=== PATIENT | male | born 1945 | race Caucasian/White ===

== ENCOUNTER → 2016-12-24 | Outpatient (CLI) | payer OTHER ==
[~2016-12-24] MED LIST: LORA10TA57 PO; PRAV10TA39 PO
[2016-12-24 16:58] LABS: ALT/SGPT 36 U/L (12-78); BLOOD UREA NITROGEN 14 mg/dl (7-18); BUN/CREATININE RATIO 11.9 (10-20); CALCIUM 8.8 mg/dl (8.5-10.1); CARBON DIOXIDE 27 mmol/L (21-32); CHLORIDE 107 mmol/L (98-107); GLUCOSE 104 mg/dl (70-99); POTASSIUM 4.4 mmol/L (3.5-5.1); SODIUM 142 mmol/L (136-145)
[2016-12-24 17:03] LABS: ALB/GLOB RATIO 1.1 (0.9-2); ALKALINE PHOSPHATASE 80 U/L (45-117); AST/SGOT 18 U/L (15-37); CHOLESTEROL 199 mg/dl (0-200); CHOLESTEROL/HDL RATIO 3.3; HDL CHOLESTEROL 61 mg/dl; LDL CHOLESTEROL CALCULATED 114 mg/dl; TRIGLYCERIDES 121 mg/dl (0-150); VERY LOW DENSITY LIPOPROT CALC 24 mg/dl
[2016-12-24 17:13] LABS: BASO % 0.7 %; BASO ABS # 0.05 K/uL (0-0.2); COMPLETE YES; EOS % 7.8 %; HEMATOCRIT 51.5 % (42-52); IG% 0.4 %; LYMPH ABS # 2.57 K/uL (1.2-3.4); MEAN CELL VOLUME 88.9 fL (80-100); MEAN CORPUSCULAR HEMOGLOBIN 29.4 pg (25-34); MONO % 9.4 %; NEUT % 45.7 %; PLATELET COUNT 299 K/uL (130-400); RED BLOOD COUNT 5.79 M/uL (4.7-6.1); WHITE BLOOD COUNT 7.14 K/uL (4.8-10.8)
[2016-12-25 06:23] LABS: ESTIMATED AVERAGE GLUCOSE 123 mg/dl; HA1C FLAG Normal (Normal)
--- NOTE | 2016-12-28 12:29 | CODING QUERY MEDICAL NECESSITY ---
SUPPORTING DIAGNOSIS NEEDED A supporting diagnosis is required for the test/procedure performed on this patient in order for us to be reimbursed by the patient's insurance. Please provide a supporting diagnosis for the following test/procedure listed below next to the test name along with your signature. *If there is no additional diagnosis for this patient that would support the following test/procedure please document that below next to the test/procedure. Test(s)/Procedure(s) that require a supporting diagnosis: * GLYCATED HEMOGLOBIN DIAGNOSIS: * PSA DIAGNOSIS: * DOS: 12/24/16 Provider Signature: Date: Thank you Kristine Page Health Information Management Once completed, please kindly fax back to [phone] For questions please call [phone]
== END | disposition home or self-care (01) ==
LOC: C.LABBC 13:11
PROVIDERS: ATTEND Internal Medicine
DX: Z00.00 Encounter for general adult medical examination without abnormal findings (principal); R73.01 Impaired fasting glucose; Z12.5 Encounter for screening for malignant neoplasm of prostate

== ENCOUNTER → 2017-12-23 | Outpatient (CLI) | payer OTHER ==
[~2017-12-23] MED LIST changes: +ASPI81TA28 PO; +LORA-749 PO; -LORA10TA57 PO
[2017-12-23 16:43] LABS: BASO % 0.6 %; BASO ABS # 0.06 K/uL (0-0.2); EOS % 11.1 %; HEMATOCRIT 51.4 % (42-52); HEMOGLOBIN 17.2 g/dL (14.0-18.0); IG# 0.05 K/uL (0.00-0.02); LYMPH % 22.6 %; LYMPH ABS # 2.44 K/uL (1.2-3.4); MEAN CELL VOLUME 89.9 fL (80-100); MEAN CORPUSCULAR HEMOGLOBIN 30.1 pg (25-34); MEAN CORPUSCULAR HGB CONC 33.5 g/dl (32-36); MEAN PLATELET VOLUME 10.2 fL (7.4-10.4); MONO ABS # 1.19 K/uL (0.11-0.59); NEUT % 54.2 %; NEUT ABS # 5.87 K/uL (1.4-6.5); PLATELET COUNT 369 K/uL (130-400); RED CELL DISTRIBUTION WIDTH CV 13.5 % (11.5-14.5); RED CELL DISTRIBUTION WIDTH SD 44.4 fL (36.4-46.3); WHITE BLOOD COUNT 10.81 K/uL (4.8-10.8)
[2017-12-23 17:10] LABS: ALBUMIN 3.5 gm/dl (3.4-5.0); ALT/SGPT 35 U/L (12-78); BLOOD UREA NITROGEN 16 mg/dl (7-18); CALCIUM 9.1 mg/dl (8.5-10.1); CARBON DIOXIDE 25 mmol/L (21-32); CHOLESTEROL 176 mg/dl (0-200); CREATININE 1.29 mg/dl (0.60-1.40); GLUCOSE 113 mg/dl (70-99); POTASSIUM 4.4 mmol/L (3.5-5.1); SODIUM 137 mmol/L (136-145)
[2017-12-23 17:15] LABS: ALKALINE PHOSPHATASE 103 U/L (45-117); AST/SGOT 20 U/L (15-37); LDL CHOLESTEROL CALCULATED 108 mg/dl; TOTAL PROTEIN 7.4 gm/dl (6.4-8.2)
[2017-12-24 06:58] LABS: HEMOGLOBIN A1C 6.2 % (4.5-5.6)
== END | disposition home or self-care (01) ==
LOC: C.LABBC 13:20
PROVIDERS: ATTEND Internal Medicine
DX: Z00.00 Encounter for general adult medical examination without abnormal findings (principal); E78.5 Hyperlipidemia, unspecified; K57.90 Diverticulosis of intestine, part unspecified, without perforation or abscess without bleeding; R73.01 Impaired fasting glucose; Z12.5 Encounter for screening for malignant neoplasm of prostate

== ENCOUNTER 2019-08-27 05:49 | Inpatient (IN) ==
--- NOTE | 2019-08-27 06:32 | XRay Report ---
XR ribs RT min 3V w CXR1V HISTORY: 74 years-old Male right lower rib pain. known lymphoma. coughing. Acute right-sided rib pa in with cough COMPARISON: Chest radiograph 05/23/2019, PET CT 07/02/2019 TECHNIQUE: PA view of the chest with 4 views of the right ribs FINDINGS: Bilateral hilar prominence has mildly progressed from comparison, notably on the right. Cardiac silho uette is normal in size. There is no pneumothorax, pleural effusion or overt pulmonary edema. Mild ch ronic interstitial coarsening of the lateral right midlung and lung bases. Degenerative changes of th e shoulders and spine. Healed remote rib fractures of the posterior right eighth, ninth and 10th ribs . No acute displaced fracture identified. IMPRESSION: 1. Bilateral hilar prominence likely related to underlying adenopathy. 2. No acute displaced rib fracture identified. The above report was generated using voice recognition software. It may contain grammatical, syntax o r spelling errors. Electronically signed by: Vince Mcnamara M.D. 08/27/2019 6:31 AM
[2019-08-27 06:43] LABS: Basophils # (auto) 0.05 K/uL (0-0.2); Basophils % (auto) 0.8 %; Eosinophils # (auto) 0.45 K/uL (0-0.5); Immature Granulocytes # (auto) 0.02 K/uL (0.00-0.02); Immature Granulocytes % (auto) 0.3 %; Lymphocytes # (auto) 0.49 K/uL (1.2-3.4); Lymphocytes % (auto) 7.6 %; Mean Corpuscular Hemoglobin 29.2 pg (25-34); Mean Corpuscular Hgb Conc 33.3 g/dL (32-36); Mean Corpuscular Volume 87.5 fL (80-100); Mean Platelet Volume 10.1 fL (7.4-10.4); Monocytes # (auto) 1.39 K/uL (0.11-0.59); Monocytes % (auto) 21.6 %; Neutrophils # (auto) 4.03 K/uL (1.4-6.5); Neutrophils % (auto) 62.7 %; Platelet Count 245 K/uL (130-400); RDW Coefficient of Variation 13.5 % (11.5-14.5); RDW Standard Deviation 43.3 fL (36.4-46.3); White Blood Count 6.43 K/uL (4.8-10.8)
[2019-08-27] MEDS ORDERED: HYDROmorphone INJ 0.5 MG/0.5 ML SYR IV PRN (06:44)
[2019-08-27] MEDS ORDERED: ACETAMINOPHEN 1,000 MG/100 ML VIAL IV STA (06:44)
[2019-08-27] MEDS ORDERED: ONDANSETRON INJ 2 MG/ML 2 ML VIAL IV STA (06:45)
[2019-08-27 07:04] LABS: BUN Creatinine Ratio 12.6 (10-20); Blood Urea Nitrogen 25 mg/dl (7-18); Calcium 12.4 mg/dl (8.5-10.1); Carbon Dioxide 28 mmol/L (21-32); Chloride 104 mmol/L (98-107); Creatinine Clr Calc Pharmacy 29.1 ml/min; Est GFR (African American) 36.1; Est GFR (Non-African American) 31.1; Glucose 102 mg/dl (70-99); Potassium 3.7 mmol/L (3.5-5.1); Sodium 138 mmol/L (136-145); Troponin I < 0.015 ng/ml (0-0.045)
[2019-08-27 07:13] LABS: Creatine Kinase 42 U/L (39-308); Creatine Kinase MB < 1.0 ng/ml (0.5-3.6)
[2019-08-27] MEDS ORDERED: SODIUM CHLORIDE 0.9% 1000ML 1,000 ML IV ONE ×2 (07:15→07:32)
--- NOTE | 2019-08-27 07:43 | CT Scan Report ---
CT chest wo con CT DOSE: 456.17 mGycm CLINICAL HISTORY: 74 years-old Male with Pt c/o Rt sided flank pain. Acute right-sided chest and fla nk pain. History of lymphoma. TECHNIQUE: Multiaxial CT images of the chest were performed without contrast. A dose lowering techni que was utilized adhering to the principles of ALARA. COMPARISON: CT abdomen and pelvis of same day, PET CT 07/02/2019, chest CT 09/13/2014 FINDINGS: Bulky supraclavicular, axillary chain, subpectoral, mediastinal, hilar and upper abdominal adenopathy has progressed from 07/02/2019 compatible with patient's known clinical diagnosis of lymphoma. For exa mple, index conglomerate right axillary adenopathy measures 5.2 x 4.5 cm on image 73 series 4 which p reviously measured up to 4.9 x 2.3 cm within this distribution. Right paratracheal lymph nodes measur e up to 2.6 x 2.1 cm, previously 1.9 x 1.5 cm. Heart is moderately enlarged. No pericardial effusion. Coronary arterial calcifications are noted. No thoracic aortic aneurysm. Unremarkable thyroid. There are a few prominent right-sided subpleural nodules suggestive of additional probable lymph nodes. So ft tissue nodule posterior to the left deltoid mouth reflect enlarged lymph node. Trace right pleural effusion. No pneumothorax. Mild dependent bibasilar groundglass densities suggest bethany of atelectasis. No overt pulmonary edema or airspace consolidation typical for pneumonia. Mild de pendent right basilar consolidation suggests compressive atelectasis. No suspicious pulmonary nodules or masses. Soft tissue adjacent to the splenic hilum may reflect additional adenopathy. Soft tissues are within normal limits. Subcutaneous stranding of the right greater than left axillary distributio ns. Degenerative changes of the shoulders and spine. No acute fracture or suspicious bone lesion iden tified. IMPRESSION: 1. Worsened extensive thoracic and upper mediastinal adenopathy as above compatible with progressive lymphoma. 2. Trace right pleural effusion with subsegmental dependent bibasilar consolidation suggestive of ate lectasis. 3. No acute fracture identified. 4. Cardiomegaly. Electronically signed by: Vince Mcnamara M.D. 08/27/2019 7:42 AM
--- NOTE | 2019-08-27 07:56 | CT Scan Report ---
CT SCAN OF THE ABDOMEN AND PELVIS WITHOUT CONTRAST CLINICAL HISTORY: Right flank pain COMPARISON STUDY: 09/13/2014, PET/CT scan dated 07/02/2019 TECHNIQUE: CT scan of the abdomen and pelvis was performed from the lung bases to the proximal femurs . Images are reviewed in the axial, sagittal, and coronal planes. IV contrast was not administered fo r this examination. A dose lowering technique was utilized adhering to the principles of ALARA. CT DOSE: 681.43 mGycm FINDINGS: Lower chest: There are bibasilar dependent atelectatic changes. There is mild lower lobe surgical bro nchiectasis. There is a 5 mm right lower lobe pulmonary nodule. There is a 5 mm pleural-based right l ower lobe pulmonary nodule. There are enlarged cardiophrenic angle lymph nodes measuring up to 21 mm in diameter. There is a trace right pleural effusion. Liver: The unenhanced liver is normal in size, contour, and attenuation. There is no intrahepatic rossi iary ductal dilatation. Gallbladder: Unremarkable. Spleen: The spleen is enlarged measuring 15.2 cm Pancreas: Unremarkable. Adrenal glands: Unremarkable. Kidneys: There is right-sided hydronephrosis and right-sided hydroureter. There is obstructing 2.8 mm right UVJ calculus. Bowel: There are no transition zones indicate bowel obstruction. There is pancolonic diverticulosis. There are no acute peridiverticular inflammatory changes. The appendix appears normal. Peritoneum: There is no intraperitoneal free air or abdominal ascites. There are bilateral fat-contai ismael inguinal hernias. Vasculature: The abdominal aorta is normal in course and caliber. Adenopathy: There are enlarged cardiophrenic angle lymph nodes. There are enlarged lymph nodes in the gastrohepatic ligament. There are enlarged perisplenic and peripancreatic lymph nodes. There are enl arged retrocrural lymph nodes, an enlarged ceci hepatis lymph nodes. There are enlarging portacaval lymph nodes. There are enlarged bilateral iliac chain lymph nodes and inguinal lymph nodes. An index left aortic lymph node measures 34 mm in diameter. The findings are consistent with the patient's kno wn lymphoma Pelvic viscera: The prostate is enlarged measuring 56 mm. Skeletal structures: There is bilateral L5 spondylolysis IMPRESSION: 1. 2.8 mm right UVJ calculus with secondary obstructive change 2. Moderately extensive progressive abdominal and pelvic lymphadenopathy, consistent with the patient 's known lymphoma 3. Pandiverticulosis. No evidence of acute diverticulitis 4. Normal appendix 5. Prostatomegaly Electronically signed by: Benigno Hamilton M.D. 08/27/2019 7:55 AM
--- NOTE | 2019-08-27 09:28 | History & Physical Report ---
Date of Service August 27, 2019 Assessment & Plan (1) Hypercalcemia: Admit patient to PCU on telemetry for hypercalcemia Vital signs every 4 hours Start IV fluid hydration with normal saline of 100 cc/h Monitor calcium closely Ionized calcium pending Consult nephrology for hypercalcemia DVT prophylaxis heparin 5000 international units every 12 hours Full code Present on Admission?: Yes (2) Nephrolithiasis: Discussed with urology. With conservative we tried to treat 2.8 mm kidney stone. Continue IV fluid hydration Monitor electrolytes and replenish as needed Present on Admission?: Yes (3) Chronic renal insufficiency, stage III (moderate): Avoid nephrotoxic agents. Continue monitoring creatinine and GFR. IV fluid hydration Present on Admission?: Yes (4) Lymphoma: Follow-up with Dr. Mayes. Patient supposed to have a port placed for chemotherapy this week on Tuesday. Present on Admission?: Yes (5) Hyperlipidemia: Lipid panel pending, continue pravastatin 10 mg p.o. nightly. Continue aspirin 81 mg p.o. nightly preventatively for coronary artery disease. 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 Patient said nothing relieves his pain. Pain is colicky comes and goes. Nature it is shooting and radiating to his right groin. Patient did not notice any blood in his urine. Patient knows he has lymphoma and needs treatment for it. Patient denies being febrile. In review of system patient denies fever, chills, chest pain, shortness of breath, abdominal pain except for right costovertebral angle tenderness, urgency, frequency, dysuria, hematuria, syncope or near syncope. Labs reviewed: WBC 6.43, hemoglobin 14, hematocrit 42, sodium 138, potassium 3.7, chloride 104, BUN 25, creatinine 2.02, GFR 31.1, Calcium 12.4. Troponin 0 0.05, urine pending; CT abdomen pelvis:1. 2.8 mm right UVJ calculus with secondary obstructive change 2. Moderately extensive progressive abdominal and pelvic lymphadenopathy, consistent with the patient's known lymphoma 3. Pandiverticulosis. No evidence of acute diverticulitis 4. Normal appendix 5. Prostatomegaly The decision was made to admit patient to PCU on telemetry for hypercalcemia, nephrolithiasis, worsening chronic kidney insufficiency, hydration and further evaluation treatment. Allergies Allergy/AdvReac Type Severity Reaction Status Date / Time No Known Drug Allergies Allergy Verified 08/27/19 07:01 Home Medications Home Medications Medication Instructions Recorded Confirmed Type sodium chloride 0.65 % nasal spray 2 sprays INTNAS QID PRN 05/10/19 08/27/19 History aerosol pravastatin 10 mg tablet 10 mg PO HS #90 tab 07/16/19 08/27/19 History aspirin [Aspir-81] 81 mg PO HS 07/18/19 08/27/19 History Past Med/Surg History Medical History Chronic kidney disease (CKD) stage G3a/A1, moderately decreased glomerular filtration rate (GFR) between 45-59 mL/min/1.73 square meter and albuminuria creatinine ratio less than 30 mg/g History of stomach ulcers STOMACH ULCER 1961 Hyperlipidemia PND (post-nasal drip) Surgical History History of cleft palate INFANCY History of colonoscopy History of removal of cyst LOCAL History of tonsillectomy S/P lymph node biopsy (08/01/19) Right Axillary Lymph Node Biopsy Dr. Andres 08/01/19 Family History Mother No problems noted. 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 occupational status: retired Other Information That Helps Us Care for You: No Feels Safe at Home: Yes Safety Concerns: Feels Safe At This Time Smoking Status: Former smoker Tobacco Type: smokeless tobacco ; Do You Dip or Chew Tobacco: Yes ; Second Hand Exposure: No ; Hx Alcohol Use: Yes Alcohol type: beer Hx Substance Use: No Review of Systems Review of Systems: All systems reviewed & are unremarkable except as noted in HPI & below Physical Exam Constitutional: WD/WN, vitals as above well developed Eyes: PERRL, conjunctivae normal, anicteric sclerae ENMT: external ear and nose normal, oropharynx normal Neck: trachea midline, no thyromegaly Respiratory: normal respiratory effort, lungs clear to auscultation Cardiovascular: RRR, no murmur, no edema Gastrointestinal (Abdomen): normal bowel sounds, soft, nontender, no hepatosplenomegaly Musculoskeletal: no cyanosis or clubbing, extremities motor strength 5/5 Skin: no rashes, warm and dry Neurologic: patellar DTR's 2+ bilat, sensation intact Psychiatric: A+Ox3, euthymic affect Genitourinary: Right costovertebral angle tenderness Lymphatic: no cervical or axillary lymphadenopathy Results & Data Vital Signs (Past 12 Hours) Vital Signs Temp Pulse Pulse Resp BP BP Pulse Ox 08/27/19 08:00 88 16 102/62 94 08/27/19 05:58 36.4 C L 80 20 105/65 96 Code Status & VTE Plan Code Status Full code VTE Prophylaxis Plan VTE Prophylaxis will be ordered: No PG Care Time/CCT Total # of Minutes Spent Total Time Spent with Patient: Total time spent is greater than 50% in coordination of care (as documented) at patient's floor/unit and/or counseling patient:
[2019-08-27 09:44] LABS: Appearance Urine Cloudy (Clear); Bacteria Urine Automated Negative (Negative); Bilirubin Urine Negative (Negative); Blood Urine Trace (Negative); Color Urine Dark Yellow; Epithelial Cell Urine Auto >30 /lpf (0-5); Glucose Urine UA Negative (Negative); Ketones Urine Negative (Negative); Leukocyte Esterase Urine Negative (Negative); Nitrite Urine Negative (Negative); Protein Urine 2+ (Negative); RBC Urine Automated 0-4 /hpf (0-4); Specific Gravity Urine 1.025 (1.000-1.030); Urobilinogen Urine Negative (Negative); pH Urine 5.5 (4.5-7.5)
[2019-08-27 09:58] LABS: Calcium Oxalate Crystals Urine Present (None Prsent); Mucus Urine Present (None Prsent)
[2019-08-27] MEDS ORDERED: ACETAMINOPHEN 325 MG TAB ONE (10:30)
[2019-08-27] MEDS ORDERED: ALUMINUM/MAGNESIUM SUSP 30 ML UDC PO PRN (10:56)
[2019-08-27] MEDS ORDERED: SODIUM CHLORIDE 0.65% NA SOLN 45 ML (OCEAN) PRN (10:56)
[2019-08-27] MEDS ORDERED: POLYETHYLENE (MIRALAX) 17 GM PACK PO PRN (10:56)
[2019-08-27] MEDS ORDERED: ACETAMINOPHEN 325 MG TAB PO PRN (10:56)
[2019-08-27] MEDS ORDERED: ONDANSETRON INJ 2 MG/ML 2 ML VIAL IV PRN (10:56)
[2019-08-27] MEDS ORDERED: MAGNESIUM HYDROXIDE SUSP 30 ML UDC PO PRN (10:56)
[2019-08-27] MEDS: SODIUM CHLORIDE 0.9% 1000ML 1,000 ML IV SCH ×2 (11:18→20:24)
--- NOTE | 2019-08-27 11:25 | Nephrology Consultation ---
Date of Consultation August 27, 2019 Assessment & Plan (1) Hypercalcemia: 74 Year old gentleman with recent diagnosis of progressive lymphoma admitted to the hospital with flank pain. Found to have acute kidney injury and hypercalcemia which in fact has been progressing over last more than a week. Initially acute kidney injury and hyperkalemia hypercalcemia was noted on lab on 08/10/2019 when creatinine was 1.8 and calcium was 11.5 which progressively worsened and now creatinine 2.[address] A/P showed right-sided hydronephrosis with 2.5 mm ureteral stone. Acute kidney injury could be secondary to hypercalcemia. Hypercalcemia in the setting of malignancy with no bony metastasis, could be related to abnormal production of PTH, Calcitriol or PTHrP --check Vit D, PTH, PTHrP --limit ca in diet --continue on IV fluid, repeat calcium every 12 hours. If calcium goes above 13 despite being on IV hydration, will consider Zometa 4 milligram IV x1 dose and Calcitonin --continue to encourage increased p.o. intake --if there is any evidence of fluid overload, will consider loop diuretics otherwise hold off on diuretics for now Will follow Thank you for allowing me to participate in your patient's care. It was a pleasure to see Ilia (2) Acute kidney injury: (3) Nephrolithiasis: (4) Lymphoma: History of Present Illness Reason for Consultation: Acute kidney injury and hypercalcemia. Attending Physician: Deysi Holbrook MD History of Present Illness Ilia Hair is a 74-year-old gentlemen with past medical history significant for recent diagnosis of progressive lymphoma, admitted to the hospital with flank pain and found to have acute kidney injury and hypercalcemia. Nephrology consult was requested to manage hypercalcemia and acute kidney injury. Electronic medical records including labs and imaging are reviewed in detail during patient's visit. Ilia presented to the hospital with flank pain for last 2-3 days. He was recently diagnosed with lymphoma currently in the process of starting treatment. On admission chest CT and CT abdomen pelvis without contrast showed progressive lymphadenopathy, right-sided mild hydronephrosis with 2.5 millimeter renal stone. Baseline creatinine has been 1.2-1.3. On admission creatinine was 2.1 which has been slowly worsening over last 1 week, lab a week ago showed creatinine 1.8. Found to have hypercalcemia with a calcium 13.2 with last calcium 12.2 a week ago. Calcium was normal prior to that. Has not been on calcium or vitamin-D supplement. Has not been on thiazide diuretics. Has been on IV normal saline @ 100 ml/h since admission Recently diagnosed with lymphoma, seems to be progressive, his recent PET scan, CT chest abdomen pelvis history of progressive hilar, mediastinal and abdominopelvic lymphadenopathy. Continues to have significant flank pain. Has been voiding normally, no hematuria. Denies SOB. Allergies Allergy/AdvReac Type Severity Reaction Status Date / Time No Known Drug Allergies Allergy Verified 08/27/19 07:01 Home Medications Home Medications Medication Instructions Recorded Confirmed Type sodium chloride 0.65 % nasal spray 2 sprays INTNAS QID PRN 05/10/19 08/27/19 History aerosol pravastatin 10 mg tablet 10 mg PO HS #90 tab 07/16/19 08/27/19 History aspirin [Aspir-81] 81 mg PO HS 07/18/19 08/27/19 History Patient History Medical History Chronic kidney disease (CKD) stage G3a/A1, moderately decreased glomerular filtration rate (GFR) between 45-59 mL/min/1.73 square meter and albuminuria creatinine ratio less than 30 mg/g History of stomach ulcers STOMACH ULCER 1961 Hyperlipidemia PND (post-nasal drip) Surgical History History of cleft palate INFANCY History of colonoscopy History of removal of cyst LOCAL History of tonsillectomy S/P lymph node biopsy (08/01/19) Right Axillary Lymph Node Biopsy Dr. Andres 08/01/19 Family History Mother No problems noted. 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 occupational status: retired Feels Safe at Home: Yes Smoking Status: Former smoker Tobacco Type: smokeless tobacco ; Second Hand Exposure: No ; Hx Alcohol Use: Yes Alcohol type: beer Hx Substance Use: No Review of Systems Review of Systems: All systems reviewed & are unremarkable except as noted in HPI & below Physical Exam Constitutional: WD/WN, vitals as above well developed and well nourished; no acute distress Eyes: PERRL, conjunctivae normal, anicteric sclerae ENMT: external ear and nose normal, oropharynx normal Ears: no hearing impairment Neck: trachea midline Respiratory: normal respiratory effort, lungs clear to auscultation no cough Auscultation: no crackles, no rales and no wheezes Cardiovascular: RRR, no murmur, no edema Gastrointestinal (Abdomen): Inspection/Auscultation: abdomen normal to inspection and normal bowel sounds Percussion/Palpation: + abdomen tender (RLQ) and abdomen soft; no guarding and abdomen not rigid Musculoskeletal: Extremities: extremities normal to inspection Gait: normal gait Skin: no rashes, warm and dry Neurologic: moves all extremities and awake Psychiatric: A+Ox3, euthymic affect Results & Data Vital Signs (Past 12 Hours) Vital Signs Temp Pulse Pulse Resp BP BP BP 08/27/19 10:56 36.4 C L 86 18 120/70 08/27/19 10:00 89 16 96/64 L 08/27/19 08:00 88 16 102/62 08/27/19 05:58 36.4 C L 80 20 105/65 Pulse Ox 08/27/19 10:56 92 08/27/19 10:00 94 08/27/19 08:00 94 08/27/19 05:58 96 PG Care Time/CCT Total # of Minutes Spent Total Time Spent with Patient: Total time spent is greater than 50% in coordination of care (as documented) at patient's floor/unit and/or counseling patient:
[2019-08-27 11:49] LABS: Thyroid Stimulating Hormone 2.31 uIu/ml (0.300-4.500)
--- NOTE | 2019-08-27 11:51 | Urology Consultation ---
Date of Consultation August 27, 2019 Assessment & Plan (1) Nephrolithiasis: 74yo M with newly diagnosed lymphoma, admitted with CHRISTIAN, hypercalcemia, and 2.8mm right UVJ stone with moderate hydro. VSS, nontoxic. Pain controlled presently. I discussed case with Dr. Olivera today. CHRISTIAN is likely multifactorial, okay to give patient 24 hours with max medical therapy. Likely patient will pass stone spontaneously given position and size. Pt soft, will hold on addition of tamsulosin for now. NPO at midnight to reassess. Will obtain KUB now and in AM to monitor stone progression. Please consult our service urgently if patient develops fever >101F, intractable pain or nausea, as this will necessitate urgent surgical intervention. Thank you for the consultation and we will continue to monitor closely with primary service. History of Present Illness Reason for Consultation: stone, hydro Requesting Physician: Dr. Holbrook Attending Physician: Deysi Holbrook MD History of Present Illness 74yo M with newly diagnosed lymphoma, patient of Dr. Mayes who supposed to have port placed on Tuesday for chemotherapy, admitted through [facility] ED for right flank pain, extending to right groin. CT diagnosed with 2.8 mm right UVJ calculus, moderate hydro. Pt noted to have moderately, extensive progressive abd and pelvic lymphadenopathy. Cr elevated to 2.0, hypercalcemia noted as well. Pt states pain is now controlled. No LUTS, dysuria, hematuria. at bedside at time of evaluation. Never previously evaluated by urology, this is his first stone. No other issues or concerns. Allergies Allergy/AdvReac Type Severity Reaction Status Date / Time No Known Drug Allergies Allergy Verified 08/27/19 07:01 Home Medications Home Medications Medication Instructions Recorded Confirmed Type sodium chloride 0.65 % nasal spray 2 sprays INTNAS QID PRN 05/10/19 08/27/19 History aerosol pravastatin 10 mg tablet 10 mg PO HS #90 tab 07/16/19 08/27/19 History aspirin [Aspir-81] 81 mg PO HS 07/18/19 08/27/19 History Patient History Medical History Chronic kidney disease (CKD) stage G3a/A1, moderately decreased glomerular filtration rate (GFR) between 45-59 mL/min/1.73 square meter and albuminuria cr eatinine ratio less than 30 mg/g History of stomach ulcers STOMACH ULCER 1961 Hyperlipidemia PND (post-nasal drip) Surgical History History of cleft palate INFANCY History of colonoscopy History of removal of cyst LOCAL History of tonsillectomy S/P lymph node biopsy (08/01/19) Right Axillary Lymph Node Biopsy Dr. Andres 08/01/19 Family History Mother No problems noted. 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 Beliefs That Will Affect Care: None marital status: Current Living Situation: Spouse Current Living Situation Comment: AND 2 TEENAGERS current occupational status: retired Feels Safe at Home: Yes Smoking Status: Former smoker Tobacco Type: smokeless tobacco ; Second Hand Exposure: No ; Hx Alcohol Use: Yes Alcohol type: beer Hx Substance Use: No Review of Systems Review of Systems: Constitutional: Denies fever, chills, sweats, malaise Eyes: Denies problem reported ENMT: Denies dizziness Resp: Denies cough, Denies shortness of breath CV: Denies JVD GI: Denies nausea/vomiting : +right flank pain- improved, Denies suprapubic pain, dysuria, urgency, frequency, hematuria MS: Denies swelling, stiffness Integ: Denies rash, erythema Neuro: Denies falls, weakness Psych: Denies behavior change Endo: Denies polyphagia, polydipsia Heme: Denies easy bleeding Physical Exam Constitutional: no acute distress and not ill appearing Eyes: no nystagmus ENMT: Ears: no hearing impairment Neck: trachea midline Respiratory: no respiratory distress and no cough Cardiovascular: Vessels: no JVD Chest (Breasts): Chest: normal inspection of chest Gastrointestinal (Abdomen): Inspection/Auscultation: abdomen not distended and no abdominal edema Percussion/Palpation: abdomen soft; abdomen nontender Musculoskeletal: Head/Neck/Chest: normocephalic and head atraumatic Skin: no rashes, warm and dry Neurologic: awake; not confused and not obtunded Psychiatric: Orientation: alert and oriented x 3 Eye Contact: good eye contact Affect: no depressed affect Genitourinary: bladder normal to inspection; no CVA tenderness Lymphatic: no lymphadenopathy and no lymphedema Results & Data Vital Signs (Past 12 Hours) Vital Signs Temp Pulse Pulse Resp BP BP BP 08/27/19 10:56 36.4 C L 86 18 120/70 08/27/19 10:00 89 16 96/64 L 08/27/19 08:00 88 16 102/62 08/27/19 05:58 36.4 C L 80 20 105/65 Pulse Ox 08/27/19 10:56 92 08/27/19 10:00 94 08/27/19 08:00 94 08/27/19 05:58 96 PG Care Time/CCT Total # of Minutes Spent Total Time Spent with Patient: Total time spent is greater than 50% in coordination of care (as documented) at patient's floor/unit and/or counseling patient:
--- NOTE | 2019-08-27 12:19 | Emergency Department Note ---
Entered by Naun Osullivan acting as a scribe for History of Present Illness General Chief complaint: Rib Injury/Pain Stated complaint: COUGHING - RT SIDE RIB PAIN Time Seen by Provider: 08/27/19 06:14 Source: patient History of Present Illness Provider complaint: Rib pain Onset (ago): day(s) (Past couple of days) Location: chest (Ribs) Radiation: back Severity: similar to prior episodes Pain Consistency: + constant Maximum Pain Intensity: 9 Current Pain Intensity: 9 Exacerbated By: + other (Coughing) Associated symptoms: + cough; no shortness of breath The patient is a 74 year old male who presents to the Emergency Room with co mplaints of constant right sided rib pain that started a couple of days ago. The patient states he has had a cough for the last 1.5 years but just in the past couple of days he has had the pain. The patient rates the pain as a 9/10 and notes it is worse when he coughs. The patient reports the pain radiates to his back as well. The patient adds that he fractured ribs about 10 years ago but describes this pain as worse. The patient denies any shortness of breath. The patient currently has lymphoma for which he is getting a port placed this week. Home Medications Home Medications Medication Instructions Recorded Confirmed Type sodium chloride 0.65 % nasal spray 2 sprays INTNAS QID PRN 05/10/19 08/27/19 History aerosol pravastatin 10 mg tablet 10 mg PO HS #90 tab 07/16/19 08/27/19 History aspirin [Aspir-81] 81 mg PO HS 07/18/19 08/27/19 History Allergies Allergy/AdvReac Type Severity Reaction Status Date / Time No Known Drug Allergies Allergy Verified 08/27/19 07:01 Past Med/Surg History Medical History Chronic kidney disease (CKD) stage G3a/A1, moderately decreased glomerular filtration rate (GFR) between 45-59 mL/min/1.73 square meter and albuminuria creatinine ratio less than 30 mg/g History of stomach ulcers STOMACH ULCER 1961 Hyperlipidemia PND (post-nasal drip) Surgical History History of cleft palate INFANCY History of colonoscopy History of removal of cyst LOCAL History of tonsillectomy S/P lymph node biopsy (08/01/19) Right Axillary Lymph Node Biopsy Dr. Andres 08/01/19 Family History Mother No problems noted. 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 and A total of 10 systems reviewed and were otherwise negative Physical Exam Vital Signs Vital Signs - 24 hr 08/27/19 08:00 Pulse Rate [Apical] 88 Respiratory Rate 16 Blood Pressure [Left Arm] 102/62 Blood Pressure Mean [Left Arm] 75 Pulse Oximetry 94 Oxygen Delivery Method Room Air GENERAL: Awake, alert, cachectic-appearing, in no distress HENT: Normocephalic, atraumatic. Oropharynx unremarkable. EYES: Normal conjunctiva. Sclera non-icteric. NECK: Supple. No nuchal rigidity. FROM. No masses. RESPIRATORY: Clear to auscultation. No wheezes. No rales. Normal respiratory effort. CARDIAC: Normal rate. Normal rhythm. No murmurs. No rubs. Extremities warm and well perfused. Pulses equal. No JVD. GI: Soft, non-distended. No tenderness to palpation. No rebound or guarding. No masses. RECTAL: Deferred. MUSCULOSKELETAL: Atraumatic. Chest examination reveals no tenderness. The back is symmetrical on inspection without obvious abnormality. There is no CVA tenderness to palpation. No joint edema. LOWER EXTREMITIES: Calves are equal size bilaterally and non-tender. No edema. No discoloration. NEURO: Normal sensorium. No sensory or motor deficits noted. Course 0648: Past medical records reviewed. The patient was evaluated in room B10, and a complete history and physical examination were performed. 0815: I reevaluated the patient and he is resting in bed. I updated him with results and discussed the treatment plan. He is agreeable with the plan. 0844: I spoke to Dr. Holbrook [facility] Hospitalist about the patient's case. She is going to accept the patient for further evaluation. Consultations Consultation #1: I spoke to Dr. Holbrook [facility] Hospitalist about the patient's case. She is going to accept the patient for further evaluation. Time: 08:44 Administered Medications Aspirin (Ecotrin Ectab) 81 mg PO HS PO Stop: 09/26/19 20:59 Last Admin: 08/27/19 20:25 Dose: 81 mg Documented by: [id number] Hydromorphone HCl (Dilaudid) 0.5 mg IV Q2H PRN PRN Reason: Pain Stop: 09/10/19 10:55 Last Admin: 08/27/19 23:17 Dose: 0.5 mg Documented by: [id number] Admin: 08/27/19 16:45 Dose: 0.5 mg Documented by: [id number] Admin: 08/27/19 12:59 Dose: 0.5 mg Documented by: [id number] Sodium Chloride (Nss 1000ml) 1,000 mls @ 100 mls/hr IV .Q10H PO Stop: 09/26/19 10:55 Last Admin: 08/28/19 06:01 Dose: 100 mls/hr Documented by: [id number] Infusion: 08/28/19 06:01 Dose: 100 mls/hr Documented by: [id number] Admin: 08/27/19 20:24 Dose: 100 mls/hr Documented by: [id number] Infusion: 08/27/19 20:24 Dose: 100 mls/hr Documented by: [id number] Admin: 08/27/19 11:18 Dose: 100 mls/hr Documented by: [id number] Pravastatin Sodium (Pravachol) 10 mg PO HS PO Stop: 09/26/19 20:59 Last Admin: 08/27/19 20:25 Dose: 10 mg Documented by: [id number] Discontinued Medications Acetaminophen (Tylenol) Confirm Administered Dose 650 mg .ROUTE .STK-MED ONE Stop: 08/27/19 10:31 Last Admin: 08/27/19 10:31 Dose: 650 mg Documented by: [id number] Hydromorphone HCl (Dilaudid) 0.5 mg IV Q15M PRN PRN Reason: Pain Stop: 09/10/19 06:43 Last Admin: 08/27/19 06:58 Dose: 0.5 mg Documented by: [id number] Acetaminophen (Ofirmev) 1,000 mg in 100 mls @ 400 mls/hr IV NOW STA Stop: 08/27/19 06:58 Last Infusion: 08/27/19 07:16 Dose: 0 mls/hr Documented by: [id number] Admin: 08/27/19 06:58 Dose: 400 mls/hr Documented by: [id number] Sodium Chloride (Nss 1000ml) 1,000 mls @ 999 mls/hr IV .Q1H1M ONE Stop: 08/27/19 08:15 Last Infusion: 08/27/19 09:00 Dose: 0 mls/hr Documented by: [id number] Admin: 08/27/19 07:55 Dose: 999 mls/hr Documented by: [id number] Sodium Chloride (Nss 1000ml) 1,000 mls @ 999 mls/hr IV .Q1H1M ONE Stop: 08/27/19 08:32 Last Infusion: 08/27/19 09:15 Dose: 0 mls/hr Documented by: [id number] Admin: 08/27/19 08:11 Dose: 999 mls/hr Documented by: [id number] Ondansetron HCl (Zofran) 4 mg IV NOW STA Stop: 08/27/19 06:46 Last Admin: 08/27/19 06:58 Dose: 4 mg Documented by: [id number] Medical Decision Making Differential Diagnosis Differential diagnoses includes but is not limited to gastritis, peptic ulcer disease, GERD, gallbladder disease, pancreatitis, small bowel obstruction, acute coronary syndrome, pericarditis, ischemic bowel, irritable bowel disease, irritable bowel syndrome, appendicitis, diverticulitis, malignancy, hernia, urinary tract infection, torsion, perforation, trauma, infectious. Medical Records Attestation: I reviewed the patient's medical records. Home Medications Current Medication List: was personally reviewed by me Laboratory Data Attestation: I reviewed the patient's lab results. Result diagrams: 08/28/19 05:14 08/28/19 05:14 Lab Results 08/27/19 08/27/19 08/27/19 Range/Units 06:29 06:29 06:29 WBC 6.43 (4.8-10.8) K/uL RBC 4.80 (4.7-6.1) M/uL Hgb 14.0 (14.0-18.0) g/dL Hct 42.0 (42-52) % MCV 87.5 (80-100) fL MCH 29.2 (25-34) pg MCHC 33.3 (32-36) g/dL RDW Std Deviation 43.3 (36.4-46.3) fL RDW Coeff of Evonne 13.5 (11.5-14.5) % Plt Count 245 (130-400) K/uL MPV 10.1 (7.4-10.4) fL Immature Gran % (Auto) 0.3 % Neut % (Auto) 62.7 % Lymph % (Auto) 7.6 % Monroe % (Auto) 21.6 % Eos % (Auto) 7.0 % Baso % (Auto) 0.8 % Immature Gran # (Auto) 0.02 (0.00-0.02) K/uL Neut # (Auto) 4.03 (1.4-6.5) K/uL Lymph # (Auto) 0.49 L (1.2-3.4) K/uL Monroe # (Auto) 1.39 H (0.11-0.59) K/uL Eos # (Auto) 0.45 (0-0.5) K/uL Baso # (Auto) 0.05 (0-0.2) K/uL Sodium 138 (136-145) mmol/L Potassium 3.7 (3.5-5.1) mmol/L Chloride 104 (98-107) mmol/L Carbon Dioxide 28 (21-32) mmol/L Anion Gap 7.0 (3-11) BUN 25 H (7-18) mg/dl Creatinine 2.02 H (0.6-1.4) mg/dl Est Cr Clr Drug Dosing 29.1 ml/min Est GFR ( Amer) 36.1 Est GFR (Non-Af Amer) 31.1 BUN/Creatinine Ratio 12.6 (10-20) Glucose 102 H (70-99) mg/dl Calcium 12.4 H* (8.5-10.1) mg/dl Total Creatine Kinase 42 (39-308) U/L CK-MB (CK-2) < 1.0 (0.5-3.6) ng/ml CK/CKMB % Calc TNP Troponin I < 0.015 (0-0.045) ng/ml Urine Color Urine Appearance (Clear) Urine pH (4.5-7.5) Ur Specific Keyser (1.000-1.030) Urine Protein (Negative) Urine Glucose (UA) (Negative) Urine Ketones (Negative) Urine Blood (Negative) Urine Nitrite (Negative) Urine Bilirubin (Negative) Urine Urobilinogen (Negative) Ur Leukocyte Esterase (Negative) Urine WBC (Auto) (0-5) /hpf Urine RBC (Auto) (0-4) /hpf U Hyaline Cast (Auto) (0-5) /lpf U Epithel Cells (Auto) (0-5) /lpf Urine Bacteria (Auto) (Negative) Ur Renal Epithelial Cell Urine Crystals Calcium Oxalate Crystal (None Prsent) Urine Mucus (None Prsent) 08/27/19 Range/Units 09:10 WBC (4.8-10.8) K/uL RBC (4.7-6.1) M/uL Hgb (14.0-18.0) g/dL Hct (42-52) % MCV (80-100) fL MCH (25-34) pg MCHC (32-36) g/dL RDW Std Deviation (36.4-46.3) fL RDW Coeff of Evonne (11.5-14.5) % Plt Count (130-400) K/uL MPV (7.4-10.4) fL Immature Gran % (Auto) % Neut % (Auto) % Lymph % (Auto) % Monroe % (Auto) % Eos % (Auto) % Baso % (Auto) % Immature Gran # (Auto) (0.00-0.02) K/uL Neut # (Auto) (1.4-6.5) K/uL Lymph # (Auto) (1.2-3.4) K/uL Monroe # (Auto) (0.11-0.59) K/uL Eos # (Auto) (0-0.5) K/uL Baso # (Auto) (0-0.2) K/uL Sodium (136-145) mmol/L Potassium (3.5-5.1) mmol/L Chloride (98-107) mmol/L Carbon Dioxide (21-32) mmol/L Anion Gap (3-11) BUN (7-18) mg/dl Creatinine (0.6-1.4) mg/dl Est Cr Clr Drug Dosing ml/min Est GFR ( Amer) Est GFR (Non-Af Amer) BUN/Creatinine Ratio (10-20) Glucose (70-99) mg/dl Calcium (8.5-10.1) mg/dl Total Creatine Kinase (39-308) U/L CK-MB (CK-2) (0.5-3.6) ng/ml CK/CKMB % Calc Troponin I (0-0.045) ng/ml Urine Color Dark Yellow Urine Appearance Cloudy A (Clear) Urine pH 5.5 (4.5-7.5) Ur Specific Keyser 1.025 (1.000-1.030) Urine Protein 2+ H (Negative) Urine Glucose (UA) Negative (Negative) Urine Ketones Negative (Negative) Urine Blood Trace H (Negative) Urine Nitrite Negative (Negative) Urine Bilirubin Negative (Negative) Urine Urobilinogen Negative (Negative) Ur Leukocyte Esterase Negative (Negative) Urine WBC (Auto) 1-5 (0-5) /hpf Urine RBC (Auto) 0-4 (0-4) /hpf U Hyaline Cast (Auto) 5-10 H (0-5) /lpf U Epithel Cells (Auto) >30 H (0-5) /lpf Urine Bacteria (Auto) Negative (Negative) Ur Renal Epithelial Cell Not Reportable Urine Crystals Not Reportable Calcium Oxalate Crystal Present A (None Prsent) Urine Mucus Present A (None Prsent) Imaging Data Radiologist's Impression: Radiology results as stated below per my review and the radiologist's interpretation: XR ribs RT min 3V w CXR1V HISTORY: 74 years-old Male right lower rib pain. known lymphoma. coughing. Acute right-sided rib pain with cough COMPARISON: Chest radiograph 05/23/2019, PET CT 07/02/2019 TECHNIQUE: PA view of the chest with 4 views of the right ribs FINDINGS: Bilateral hilar prominence has mildly progressed from comparison, notably on the right. Cardiac silhouette is normal in size. There is no pneumothorax, pleural effusion or overt pulmonary edema. Mild chronic interstitial coarsening of the lateral right midlung and lung bases. Degenerative changes of the shoulders and spine. Healed remote rib fractures of the posterior right eighth, ninth and 10th ribs. No acute displaced fracture identified. IMPRESSION: 1. Bilateral hilar prominence likely related to underlying adenopathy. 2. No acute displaced rib fracture identified. The above report was generated using voice recognition software. It may contain grammatical, syntax or spelling errors. Electronically signed by: Vince Mcnamara M.D. 08/27/2019 6:[address] chest wo con CT DOSE: 456.17 mGycm CLINICAL HISTORY: 74 years-old Male with Pt c/o Rt sided flank pain. Acute right-sided chest and flank pain. History of lymphoma. TECHNIQUE: Multiaxial CT images of the chest were performed without contrast. A dose lowering technique was utilized adhering to the principles of ALARA. COMPARISON: CT abdomen and pelvis of same day, PET CT 07/02/2019, chest CT 09/13/2014 FINDINGS: Bulky supraclavicular, axillary chain, subpectoral, mediastinal, hilar and upper abdominal adenopathy has progressed from 07/02/2019 compatible with patient's known clinical diagnosis of lymphoma. For example, index conglomerate right axillary adenopathy measures 5.2 x 4.5 cm on image 73 series 4 which previously measured up to 4.9 x 2.3 cm within this distribution. Right paratracheal lymph nodes measure up to 2.6 x 2.1 cm, previously 1.9 x 1.5 cm. Heart is moderately enlarged. No pericardial effusion. Coronary arterial calcifications are noted. No thoracic aortic aneurysm. Unremarkable thyroid. There are a few prominent right-sided subpleural nodules suggestive of additional probable lymph nodes. Soft tissue nodule posterior to the left deltoid mouth reflect enlarged lymph node. Trace right pleural effusion. No pneumothorax. Mild dependent bibasilar groundglass densities suggestive of atelectasis. No overt pulmonary edema or airspace consolidation typical for pneumonia. Mild dependent right basilar consolidation suggests compressive atelectasis. No suspicious pulmonary nodules or masses. Soft tissue adjacent to the splenic hilum may reflect additional adenopathy. Soft tissues are within normal limits. Subcutaneous stranding of the right greater than left axillary distributions. Degenerative changes of the shoulders and spine. No acute fracture or suspicious bone lesion identified. IMPRESSION: 1. Worsened extensive thoracic and upper mediastinal adenopathy as above compatible with progressive lymphoma. 2. Trace right pleural effusion with subsegmental dependent bibasilar consolidation suggestive of atelectasis. 3. No acute fracture identified. 4. Cardiomegaly. Electronically signed by: Vince Mcnamara M.D. 08/27/2019 7:[address] SCAN OF THE ABDOMEN AND PELVIS WITHOUT CONTRAST CLINICAL HISTORY: Right flank pain COMPARISON STUDY: 09/13/2014, PET/CT scan dated 07/02/2019 TECHNIQUE: CT scan of the abdomen and pelvis was performed from the lung bases to the proximal femurs. Images are reviewed in the axial, sagittal, and coronal planes. IV contrast was not administered for this examination. A dose lowering technique was utilized adhering to the principles of ALARA. CT DOSE: 681.43 mGycm FINDINGS: Lower chest: There are bibasilar dependent atelectatic changes. There is mild lower lobe surgical bronchiectasis. There is a 5 mm right lower lobe pulmonary nodule. There is a 5 mm pleural-based right lower lobe pulmonary nodule. There are enlarged cardiophrenic angle lymph nodes measuring up to 21 mm in diameter. There is a trace right pleural effusion. Liver: The unenhanced liver is normal in size, contour, and attenuation. There is no intrahepatic biliary ductal dilatation. Gallbladder: Unremarkable. Spleen: The spleen is enlarged measuring 15.2 cm Pancreas: Unremarkable. Adrenal glands: Unremarkable. Kidneys: There is right-sided hydronephrosis and right-sided hydroureter. There is obstructing 2.8 mm right UVJ calculus. Bowel: There are no transition zones indicate bowel obstruction. There is pancolonic diverticulosis. There are no acute peridiverticular inflammatory changes. The appendix appears normal. Peritoneum: There is no intraperitoneal free air or abdominal ascites. There are bilateral fat-containing inguinal hernias. Vasculature: The abdominal aorta is normal in course and caliber. Adenopathy: There are enlarged cardiophrenic angle lymph nodes. There are enlarged lymph nodes in the gastrohepatic ligament. There are enlarged perisplenic and peripancreatic lymph nodes. There are enlarged retrocrural lymph nodes, an enlarged ceci hepatis lymph nodes. There are enlarging portacaval lymph nodes. There are enlarged bilateral iliac chain lymph nodes and inguinal lymph nodes. An index left aortic lymph node measures 34 mm in diameter. The findings are consistent with the patient's known lymphoma Pelvic viscera: The prostate is enlarged measuring 56 mm. Skeletal structures: There is bilateral L5 spondylolysis IMPRESSION: 1. 2.8 mm right UVJ calculus with secondary obstructive change 2. Moderately extensive progressive abdominal and pelvic lymphadenopathy, consistent with the patient's known lymphoma 3. Pandiverticulosis. No evidence of acute diverticulitis 4. Normal appendix 5. Prostatomegaly Electronically signed by: Benigno Hamilton M.D. 08/27/2019 7:55 AM ECG Data Attestation: I personally reviewed and interpreted this ECG as follows: Indication: + abdominal pain Rate (beats per minute): 75 Rhythm: + normal sinus ECG Sheldon: + Normal ECG ST segments: + Normal ST segments ECG Findings: + Other (QTC 442); no PACs and no PVCs Blood Pressure Blood Pressure Findings: Low blood pressure Blood Pressure Disposition: further management by hospitalist MDM Narrative This is a 74-year-old male who presents emergency department complaining of right-sided flank pain. The patient is about to start treatments for lymphoma. His calcium was found to be grossly elevated therefore he was given 2 L of fluid here in the emergency department. His creatinine was also found to be grossly elevated. He was sent for CAT scan the pelvis which was concerning for 2 mm stone. Due to the acute kidney injury as well as the increasing calcium I did discuss the case with the hospitalist service who agreed to admit the patient. Impression & Plan Hypercalcemia, Lymphoma, Nephrolithiasis, Acute kidney injury Discharge Plan Visit Data *Final* Discharge Date/Time: 08/27/19 10:40 Chief Complaint: Rib Injury/Pain Stated Complaint: COUGHING - RT SIDE RIB PAIN ED Provider: Dariusz Rodriguez Discharge Problem: Hypercalcemia, Lymphoma, Nephrolithiasis, Acute kidney injury Patient Disposition: Admitted As Inpatient Discharge Instructions Interventions: ED Discharge Assessment Last Done: 08/27/19 10:40 The scribe's documentation has been prepared under my direction and personally reviewed by me in its entirety. I confirm that the note above accurately reflects all work, treatment, procedures, and medical decision making performed by me.
[2019-08-27] MEDS: HYDROmorphone INJ 0.5 MG/0.5 ML SYR IV PRN ×3 (12:59→23:17)
[2019-08-27 13:04] LABS: Albumin Level 2.7 gm/dl (3.4-5.0); BUN Creatinine Ratio 12.3 (10-20); Creatinine Clr Calc Pharmacy 28.2 ml/min; Est GFR (African American) 34.8; Phosphorus 4.2 mg/dl (2.5-4.9); Potassium 3.9 mmol/L (3.5-5.1)
--- NOTE | 2019-08-27 14:17 | XRay Report ---
KUB HISTORY: Follow up study in a patient with a distal right ureteral calculus right distal stone COMPARISON: CT abdomen and pelvis of same day FINDINGS: The bowel gas pattern is non-obstructive. There is no organomegaly. Pelvic basin calcifica tions suggest a phlebolith redemonstrated. Ill-defined radiodensity of the medial right pelvis may co rrelate with the previously described calculus of the right ureterovesicular junction. No definite ne phrolithiasis identified. No pneumoperitoneum or pneumatosis. No fracture. IMPRESSION: Ill-defined 3 mm radiodensity of the medial right hemipelvis may correlate with the previously descri bed calculus of the right ureterovesicular junction. Electronically signed by: Vicne Mcnamara M.D. 08/27/2019 2:15 PM
[2019-08-27] MEDS: ASPIRIN 81 MG ECTAB PO SCH (20:25)
[2019-08-27] MEDS: PRAVASTATIN SOD 10 MG TAB PO SCH (20:25)
[2019-08-28 05:30] LABS: Basophils # (auto) 0.03 K/uL (0-0.2); Basophils % (auto) 0.4 %; Eosinophils # (auto) 0.42 K/uL (0-0.5); Eosinophils % (auto) 5.6 %; Hematocrit (blood only) 40.2 % (42-52); Hemoglobin 12.9 g/dL (14.0-18.0); Immature Granulocytes # (auto) 0.02 K/uL (0.00-0.02); Immature Granulocytes % (auto) 0.3 %; Lymphocytes # (auto) 0.65 K/uL (1.2-3.4); Lymphocytes % (auto) 8.6 %; Mean Corpuscular Hemoglobin 28.4 pg (25-34); Mean Corpuscular Hgb Conc 32.1 g/dL (32-36); Mean Corpuscular Volume 88.5 fL (80-100); Monocytes # (auto) 1.34 K/uL (0.11-0.59); Monocytes % (auto) 17.8 %; Neutrophils # (auto) 5.06 K/uL (1.4-6.5); Neutrophils % (auto) 67.3 %; Platelet Count 224 K/uL (130-400); RDW Coefficient of Variation 13.6 % (11.5-14.5); RDW Standard Deviation 44.2 fL (36.4-46.3); Red Blood Count 4.54 M/uL (4.7-6.1); White Blood Count 7.52 K/uL (4.8-10.8)
[2019-08-28] MEDS: SODIUM CHLORIDE 0.9% 1000ML 1,000 ML IV SCH ×3 (06:01→18:00)
[2019-08-28 06:04] LABS: Albumin Level 2.5 gm/dl (3.4-5.0); BUN Creatinine Ratio 10.6 (10-20); Calcium 10.5 mg/dl (8.5-10.1); Creatinine Clr Calc Pharmacy 28.8 ml/min; Est GFR (African American) 35.6; Est GFR (Non-African American) 30.7; Potassium 4.1 mmol/L (3.5-5.1)
[2019-08-28 06:06] LABS: Albumin Globulin Ratio 0.8 (0.9-2); Bilirubin,Total 0.5 mg/dl (0.2-1); Globulin 3.1 gm/dl (2.5-4.0); Total Protein 5.6 gm/dl (6.4-8.2)
--- NOTE | 2019-08-28 07:42 | Urology Progress Note ---
Date of Service August 28, 2019 Assessment & Plan (1) Nephrolithiasis: 74yo M with newly diagnosed lymphoma, admitted with CHRISTIAN, hypercalcemia, and 2.8mm right UVJ stone with moderate hydro. VSS, nontoxic. Pain controlled presently. Cr unchanged from yesterday. Continue IVFs, strain all urine. Keep NPO. Findings reviewed with Dr. Jordan. Given his CHRISTIAN in the context of an obstructing right ureteral stone, will proceed with OR for cysto, Right retrograde pyelogram and Right stent placement, possible rogjt ureteroscopy, laser litho, stone basketing, possible ureteral dilation depending on findings. Risks and benefits to be reviewed with patient by Dr. Jordan. OR notified. Chest CT and EKG completed as part of initial workup. Will cover with IV Ciprofloxacin preoperatively. Supervising Physician Co-Signing Physician Notes Discussed options with patient, he feels comfortable moving forward with a cystoscopy and possible ureteroscopy to rule out the persistence of this distal right ureteral stone. We will plan to move forward with surgery as I would like to attempt to ensure that he has no residual ureteral obstruction from a stone as he likely heads towards chemotherapy, etc. Subjective Pt doing well this AM. Some pain last evening around 2pm, describes as sharp, radiating from flank to groin. He is now asymptomatic. Good UO, voiding clear urine. Straining all urine - no sign of spontaneous passage yet. States he is thirsty Chart review - Cr remains elevated and unchanged. VS stable, afebrile. Review of Systems Review of Systems: Constitutional: Denies fever, chills, sweats, malaise Eyes: Denies problem reported ENMT: Denies dizziness Resp: Denies cough, Denies shortness of breath CV: Denies JVD GI: Denies nausea/vomiting : Denies suprapubic pain, dysuria, urgency, frequency, hematuria MS: Denies swelling, stiffness Integ: Denies rash, erythema Neuro: Denies falls, weakness Psych: Denies behavior change Endo: Denies polyphagia, polydipsia Heme: Denies easy bleeding Physical Exam Constitutional: no acute distress and not ill appearing Eyes: no nystagmus ENMT: Ears: no hearing impairment Neck: trachea midline Respiratory: no respiratory distress and no cough Cardiovascular: Vessels: no JVD Chest (Breasts): Chest: normal inspection of chest Gastrointestinal (Abdomen): Inspection/Auscultation: abdomen not distended and no abdominal edema Percussion/Palpation: abdomen soft; abdomen nontender Musculoskeletal: Head/Neck/Chest: normocephalic and head atraumatic Skin: no rashes, warm and dry Neurologic: awake; not confused and not obtunded Psychiatric: Orientation: alert and oriented x 3 Eye Contact: good eye contact Affect: no depressed affect Genitourinary: bladder normal to inspection; no CVA tenderness Lymphatic: no lymphadenopathy and no lymphedema Results & Data Vital Signs (Past 12 Hours) Vital Signs Temp Pulse Pulse Resp BP Pulse Ox 08/28/19 03:42 36.7 C 83 18 117/66 94 08/28/19 00:00 75 08/27/19 23:38 36.4 C L 77 18 131/72 97 PG Care Time/CCT Total # of Minutes Spent Total Time Spent with Patient: Total time spent is greater than 50% in coordination of care (as documented) at patient's floor/unit and/or counseling patient:
--- NOTE | 2019-08-28 08:07 | XRay Report ---
XR KUB/Abdomen 1 view CLINICAL HISTORY: Ureteral calculus COMPARISON STUDY: 08/27/2019 FINDINGS: There is no pathologic bowel dilatation. There are multiple old right transverse process fr actures. The previously described distal right ureteral calculus cannot BE visualized with certainty. IMPRESSION: 1. No definite urinary tract calculi identified 2. No evidence of pathologic bowel dilatation Electronically signed by: Benigno Hamilton M.D. 08/28/2019 8:05 AM
[2019-08-28] MEDS ORDERED: CIPROFLOXACIN 400 MG/200 ML BAG IV SCH (08:30)
--- NOTE | 2019-08-28 08:53 | Consultation Report ---
DATE OF CONSULTATION: 08/28/2019 REASON FOR CONSULTATION: A 74-year-old gentleman with newly diagnosed non-Hodgkin's lymphoma. HISTORY OF PRESENT ILLNESS: Mr. Hair is a pleasant 74-year-old gentleman well known to [facility], currently under my care, pending treatment for newly diagnosed diffuse large B cell lymphoma. Mr. Hair unfortunately developed flank pain necessitating admission to hospital. Specifically, day before yesterday began to experience right costovertebral angle tenderness which was colicky in nature. Mr. Hair could identify no alleviating factors. There was no evidence of hematuria per se. Fortunately, he has not been febrile and otherwise feels well. Mr. Hair was recently diagnosed via right axillary biopsy of diffuse large B cell lymphoma. Previous radiographs demonstrated extensive lymphadenopathy throughout the neck, chest, abdomen and pelvis consistent with this gentleman's diagnosis. Some of the lymph nodes in question are quite large, but I would not consider his disease of bulky by definition. He recently had staging bone marrow biopsy and aspiration performed indicating infiltrating disease. 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 Plans are underway for a MediPort placement, I believe scheduled tomorrow. He was to start induction chemotherapy later on this week. I was previously contacted by the endocrinology service with this gentleman's elevated calcium level. I was planning to give pamidronate as outpatient; however, he ended up hospitalized prior to infusion. Again, other than his diffuse abdominal pain, he is not exhibiting B symptoms at this time. Nonetheless, if we could proceed with MediPort placement perhaps I could begin oral prednisone and possibly rituximab. Central line is necessary for him to receive the Adriamycin portion of chemotherapy. During his Emergency Room workup, a 2.8 mm kidney stone was detected. Urology has been consulted and wants to treat him conservatively if possible. Urology believes the stone will pass spontaneously with vigorous IV hydration. PAST MEDICAL HISTORY: Positive for renal lithiasis, positive for chronic kidney disease, peptic ulcer disease, hyperlipidemia and diffuse large B cell lymphoma, stage IV. PAST SURGICAL HISTORY: Repair of cleft palate, colonoscopy, cyst removal, tonsillectomy, right axillary lymph node biopsy by Dr. Andres on 08/01/2019. MEDICATIONS: Prior to admission include pravastatin 10 mg p.o. daily, aspirin 81 mg p.o. daily, saline nasal sprays p.r.n. ALLERGIES: No known drug allergies. FAMILY HISTORY: His brother suffers from cardiac arrhythmias, hypertension and diabetes. Father also suffered from diabetes mellitus. Mother no significant medical problems noted. SOCIAL HISTORY: The patient is retired and lives with his . He was a former smoker. He also consumes beer on social occasions, negative for illicit drugs. REVIEW OF SYSTEMS: Most notably for colicky abdominal pain. No fevers, chills or sweats. He is not anorexic or losing weight. SKIN: No rashes or lesions. No history of dermatoses. HEENT: Negative for headaches, lightheadedness or dizziness. No acute visual or hearing deficits. No sinus symptoms, sore throat or dysphagia. LYMPH: Diffuse lymphadenopathy peripherally palpable in the lower cervical, supraclavicular as well as axillary regions. CARDIAC: No history of coronary artery disease, no angina or palpitations. PULMONARY: Negative for COPD. No shortness of breath, dyspnea or orthopnea. No cough or hemoptysis. GASTROINTESTINAL: Positive for abdominal pain as described. He is not nauseated. No vomiting. He has experienced some occasional constipation, no hematochezia, melena or dulce rectal bleeding. GENITOURINARY: No hematuria reported. ENDOCRINE: Positive for hypercalcemia. Negative for diabetes mellitus or thyroid disease. MUSCULOSKELETAL: No arthralgias or myalgias. No muscle weakness. NEUROLOGIC: Negative for seizure, stroke, or migraine headache. HEMATOLOGIC: Positive for mild normocytic normochromic anemia. PHYSICAL EXAMINATION: GENERAL: Very pleasant 74-year-old gentleman, awake, alert, appropriate, in no acute distress. VITAL SIGNS: Temperature 36.7, pulse 83, respiratory rate 18, blood pressure 117/66. SKIN: Warm, dry, noncyanotic without petechia, rash or ecchymosis. HEENT: Head is atraumatic, normocephalic. Eyes: PERRLA, EOMI. Sclerae nonicteric. No conjunctival injection. Nares are patent without rhinorrhea or discharge. Throat clear. Tongue midline. Mucous membranes are moist. NECK: Supple. No JVD or thyromegaly. HEART: Regular rate and rhythm. No clicks, rubs, murmurs or gallops. LUNGS: Clear to auscultation bilaterally. ABDOMEN: Soft, nontender, nondistended, without palpable hepatosplenomegaly. EXTREMITIES: No calf tenderness or swelling. No clubbing, cyanosis or edema. NEUROLOGICALLY: He is awake, alert and oriented x3. Cranial nerves II-XII are intact. No gross motor or sensory deficits are noted. LABORATORY DATA: WBC count 7520, hemoglobin 12.9, platelet count 224,000. Sodium 139, potassium 4.1, chloride 107, carbon dioxide 27, creatinine 2.04, BUN 22, calcium 10.5, ionized calcium 1.44. Albumin 2.5. IMPRESSION: 1. Colicky abdominal pain, most likely attributable to nephrolithiasis. 2. Hypercalcemia, attributable to malignancy. 3. Hypoalbuminemia. 4. Diffuse large B cell lymphoma (stage IV). 5. Acute on chronic renal insufficiency. PLAN: Mr. Hair is a pleasant 74-year-old gentleman recently diagnosed with stage IV diffuse large B cell lymphoma. Bone marrow biopsy and aspiration was recently completed indicating infiltrating disease in the bone marrow. Plans are underway for Mr. Hair to receive induction rituximab, cyclophosphamide, Adriamycin, vincristine and prednisone (R-CHOP). He was to begin later on this week. Dr. Andres is also scheduled for MediPort to be done tomorrow. I would like him to maintain that schedule and have his operative procedure tomorrow if possible. Appreciate urology's approach to aggressively IV hydrate. this gentleman in hopes of renal stone to pass. I believe this hypercalcemia is attributable to his malignancy and should correct upon treatment. Perhaps if his hospitalization is prolonged, could begin at least oral prednisone and rituximab intravenously. I would then administer the chemotherapeutic portion as outpatient. We will continue to follow Mr. Hair through his hospital stay. Thank you very much for allowing me to participate in his care. If you have any questions or concerns, feel free to contact me at any time. [facility]PITALMatthew
--- NOTE | 2019-08-28 11:08 | Nephrology Progress Note ---
Date of Service August 28, 2019 Assessment & Plan (1) Acute kidney injury: 74 Year old gentleman with recent diagnosis of progressive lymphoma admitted to the hospital with flank pain. Found to have acute kidney injury and hypercalcemia which in fact has been progressing over last more than a week. Initially acute kidney injury and hyperkalemia hypercalcemia was noted on lab on 08/10/2019 when creatinine was 1.8 and calcium was 11.5 which progressively worsened and now creatinine 2.[address] A/P showed right-sided hydronephrosis with 2.5 mm ureteral stone. Acute kidney injury could be secondary to hypercalcemia. Hypercalcemia in the setting of malignancy with no bony metastasis, could be related to abnormal production of PTH, Calcitriol or PTHrP. Calcium continues to improve with IV hydration, PTH appropriately suppressed. Plan for ureteral stent today for right-sided hydronephrosis. Scheduled for port placement tomorrow to start on chemotherapy with R-CHOP. --limit ca in diet --continue on IV fluid, repeat calcium every 12 hours. --continue to encourage increased p.o. intake --if there is any evidence of fluid overload, will consider loop diuretics otherwise hold off on diuretics for now Will follow (2) Nephrolithiasis: (3) Hypercalcemia: (4) Lymphoma: Fadi Felder was seen and examined in his room this morning. Right flank pain has resolved. Denies any shortness of breath or chest pain. Continued IV fluid. Blood pressure stable. Has been having decent urine output. Renal function staying stable without any significant changes, creatinine around 2.1. Calcium improved. Review of Systems Review of Systems: All systems reviewed & are unremarkable except as noted in HPI & below Physical Exam Constitutional: well developed and well nourished; no acute distress Respiratory: normal respiratory effort, lungs clear to auscultation Cardiovascular: RRR, no murmur, no edema Neurologic: moves all extremities and awake; not confused Psychiatric: A+Ox3, euthymic affect Results & Data Vital Signs (Past 12 Hours) Vital Signs Temp Pulse Pulse Resp BP BP Pulse Ox 08/28/19 10:56 36.4 C L 80 20 112/70 97 08/28/19 03:42 36.7 C 83 18 117/66 94 08/28/19 00:00 75 08/27/19 23:38 36.4 C L 77 18 131/72 97 PG Care Time/CCT Total # of Minutes Spent Total Time Spent with Patient: Total time spent is greater than 50% in coordination of care (as documented) at patient's floor/unit and/or counseling patient: (1) Lymphoma Lymphoma site: unspecified region Lymphoma type: unspecified type Qualified Code(s): C85.90 - Non-Hodgkin lymphoma, unspecified, unspecified site
--- NOTE | 2019-08-28 11:38 | Surgery Consultation ---
Date of Consultation August 28, 2019 Assessment & Plan (1) Lymphoma: Will proceed with port placement tomorrow as planned. History of Present Illness Attending Physician: Deysi Holbrook MD History of Present Illness 74 y/o male with lymphoma scheduled for A-port tomorrow now admitted for abdominal pain, hypercalcemia. Has right kidney stone, scheduled for cysto t denys. Allergies Allergy/AdvReac Type Severity Reaction Status Date / Time No Known Drug Allergies Allergy Verified 08/27/19 07:01 Home Medications Home Medications Medication Instructions Recorded Confirmed Type sodium chloride 0.65 % nasal spray 2 sprays INTNAS QID PRN 05/10/19 08/27/19 History aerosol pravastatin 10 mg tablet 10 mg PO HS #90 tab 07/16/19 08/27/19 History aspirin [Aspir-81] 81 mg PO HS 07/18/19 08/27/19 History Patient History Medical History Chronic kidney disease (CKD) stage G3a/A1, moderately decreased glomerular filtration rate (GFR) between 45-59 mL/min/1.73 square meter and albuminuria creatinine ratio less than 30 mg/g History of stomach ulcers STOMACH ULCER 1961 Hyperlipidemia PND (post-nasal drip) Surgical History History of cleft palate INFANCY History of colonoscopy History of removal of cyst LOCAL History of tonsillectomy S/P lymph node biopsy (08/01/19) Right Axillary Lymph Node Biopsy Dr. Andres 08/01/19 Family History Mother No problems noted. 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 Feels Safe at Home: Yes Smoking Status: Former smoker Tobacco Type: smokeless tobacco ; Second Hand Exposure: No ; Hx Alcohol Use: Yes Alcohol type: beer Hx Substance Use: No Physical Exam Constitutional: WD/WN, vitals as above Results & Data Vital Signs (Past 12 Hours) Vital Signs Temp Pulse Pulse Resp BP BP Pulse Ox 08/28/19 10:56 36.4 C L 80 20 112/70 97 08/28/19 03:42 36.7 C 83 18 117/66 94 08/28/19 00:00 75 08/27/19 23:38 36.4 C L 77 18 131/72 97 PG Care Time/CCT Total # of Minutes Spent Total Time Spent with Patient: Total time spent is greater than 50% in coordination of care (as documented) at patient's floor/unit and/or counseling patient: (1) Lymphoma Lymphoma site: unspecified region Lymphoma type: unspecified type Qualified Code(s): C85.90 - Non-Hodgkin lymphoma, unspecified, unspecified site
--- NOTE | 2019-08-28 13:45 | Anesthesiology Consultation ---
Date of Service August 28, 2019 Assessment & Plan Chart Review Chart Review: Acceptable Risk for Surgery and Patient NOT seen in Pre Admission Testing Consults Requested none ASA ASA4 Proposed Anesthesia Anesthesia Type: General Risk / Benefits Reviewed With: PT / POA / Parent / Guardian, Accepts Plan and Informed Consent Obtained History Surgery Operation Date: 08/28/19 13:40 Proposed Procedures p Cystoscopy, Right Retrograde Pyelogram, Stent Placement; Possible Ureteroscopy, Possible Laser Lithotripsy, Possible Basket Stone Extraction, Po ssible Ureteral Dilation - Fabricio Jordan MD Operation Date: 08/29/19 09:40 Proposed Procedures p Insertion of Mediport with Fluoroscopy - Leonides Andres DO, FACS Height/Weight Height: 5 ft 7 in Weight: 77.4 kg Allergies Allergy/AdvReac Type Severity Reaction Status Date / Time No Known Allergies Allergy Verified 08/28/19 13:23 Medications Home Medications Medication Instructions Recorded Confirmed Last Taken sodium chloride 0.65 % nasal spray 2 sprays INTNAS QID PRN 05/10/19 08/27/19 08/27/19 00:00 aerosol pravastatin 10 mg tablet 10 mg PO HS #90 tab 07/16/19 08/27/19 08/26/19 aspirin [Aspir-81] 81 mg PO HS 07/18/19 08/27/19 08/26/19 Active Medications Generic Name Dose Route Start Last Admin Trade Name Freq PRN Reason Stop Dose Admin Aspirin 81 mg 08/27/19 21:00 08/27/19 20:25 Ecotrin Ectab PO 09/26/19 20:59 81 mg HS PO Administration Hydromorphone HCl 0.5 mg 08/27/19 10:56 08/27/19 23:17 Dilaudid IV 09/10/19 10:55 0.5 mg Q2H PRN Administration Pain Sodium Chloride 1,000 mls @ 100 mls/hr 08/27/19 10:56 08/28/19 06:01 Nss 1000ml IV 09/26/19 10:55 100 mls/hr .Q10H PO Administration Pravastatin Sodium 10 mg 08/27/19 21:00 08/27/19 20:25 Pravachol PO 09/26/19 20:59 10 mg HS PO Administration NPO Date Last Intake of Fluids: 08/27/19 Time Last Intake of Fluids: 21:00 Date Last Intake of Solids: 08/27/19 Time Last Intake of Solids: 18:00 Past Medical History Medical History Chronic kidney disease (CKD) stage G3a/A1, moderately decreased glomerular filtration rate (GFR) between 45-59 mL/min/1.73 square meter and albuminuria creatinine ratio less than 30 mg/g History of stomach ulcers STOMACH ULCER 1961 Hyperlipidemia PND (post-nasal drip) Exercise / Class Metabolic Activity III < 4 Walking/Shop/Light housework Past Family History Family History Mother No problems noted. Brother Diabetes Supraventricular tachycardia Hypertension Father Diabetes Past Surgical History Surgical History History of cleft palate INFANCY History of colonoscopy History of removal of cyst LOCAL History of tonsillectomy S/P lymph node biopsy (08/01/19) Right Axillary Lymph Node Biopsy Dr. Andres 08/01/19 Past Anesthesia History No Hx of Anesthesia Complications and No Family Hx of Anesthesia Complications History of PONV No Hx of PONV and No Hx of Motion Sickness Social History Smoking Status: Former smoker tobacco type: smokeless tobacco Do You Dip or Chew Tobacco: Yes Hx Alcohol Use: Yes Alcohol type: beer alcohol intake frequency: holidays/special occasions only Hx Substance Use: No substance use type: does not use Physical Exam Vital Signs Last Vital Signs Temp 36.5 C 08/28/19 13:21 Pulse 90 08/28/19 13:21 Resp 18 08/28/19 13:21 BP 124/74 08/28/19 13:21 Pulse Ox 97 08/28/19 13:21 ENMT Mouth: + dentition abnormality and + poor dentition Thyromental Distance: > or= 3.5 Finger Breadths Mallampati Class: II Neck normal visual inspection, trachea midline and + facial hair; neck extension not limited Respiratory normal respiratory effort Auscultation: lungs clear to auscultation bilaterally Cardiovascular Rate/Rhythm: regular rate and regular rhythm Heart Sounds: no murmur Vessels: no carotid bruit Musculoskeletal Spine: normal cervical ROM Extremities: extremities normal to inspection Neurologic moves all extremities Motor/Sensory: no sensory deficit Psychiatric Orientation: alert and oriented x 3 Testing Laboratory Results 08/28/19 05:14 08/28/19 05:14 Urine Color Dark Yellow 08/27/19 09:10 Urine Appearance Cloudy (Clear) A 08/27/19 09:10 Urine pH 5.5 (4.5-7.5) 08/27/19 09:10 Ur Specific [place] 1.025 (1.000-1.030) 08/27/19 09:10 Urine Protein 2+ (Negative) H 08/27/19 09:10 Urine Glucose (UA) Negative (Negative) 08/27/19 09:10 Urine Ketones Negative (Negative) 08/27/19 09:10 Urine Nitrite Negative (Negative) 08/27/19 09:10 Ur Leukocyte Esterase Negative (Negative) 08/27/19 09:10 Urine WBC (Auto) 1-5 /hpf (0-5) 08/27/19 09:10 Urine RBC (Auto) 0-4 /hpf (0-4) 08/27/19 09:10 U Hyaline Cast (Auto) 5-10 /lpf (0-5) H 08/27/19 09:10 U Epithel Cells (Auto) >30 /lpf (0-5) H 08/27/19 09:10 Urine Bacteria (Auto) Negative (Negative) 08/27/19 09:10 Electrocardiogram Date: 08/27/19 Findings: + NSR @ (at 72; NS T wave abnormality)
[2019-08-28] MEDS ORDERED: LABETALOL HCL IV 5 MG/ML 20ML IV PRN (13:46)
[2019-08-28] MEDS ORDERED: ATROPINE SULFATE 0.1 MG/ML 10ML SYR IV PRN (13:46)
[2019-08-28] MEDS ORDERED: ePHEDrine sulfate 50 MG/ML AMP IV PRN (13:46)
[2019-08-28] MEDS ORDERED: PROMETHAZINE HCL 12.5 MG in SODIUM CHLORIDE 0.9% 50 ML IV PRN (13:46)
[2019-08-28] MEDS ORDERED: ONDANSETRON INJ 2 MG/ML 2 ML VIAL IV PRN (13:46)
[2019-08-28] MEDS ORDERED: fentaNYL citrate 100 MCG/2 ML VIAL IV PRN (13:46)
[2019-08-28] MEDS ORDERED: NALOXONE HCL 0.4 MG/1 ML VIAL/CARP IV PRN (13:46)
[2019-08-28] MEDS ORDERED: FLUMAZENIL 0.1 MG/1 ML 10 ML VIAL IV PRN (13:46)
--- NOTE | 2019-08-28 14:48 | Operative Report ---
PG Post Operative Report Pre & Post Diagnosis Operation Date: 08/28/19 13:40 Pre-Op Diagnosis: Urolithiasis Post-Op Diagnosis: Urolithiasis Operation Date: 08/29/19 09:40 <No data on this case meets the specified criteria> I identified the patient and participated in the time-out.: Yes Procedure Operation Date: 08/28/19 13:40 Actual Procedures p Cystoscopy, Right Retrograde Pyelogram, Urethral Dilation, Right Ureteroscopy(Right) - Fabricio Jordan MD Operation Date: 08/29/19 09:40 <No data on this case meets the specified criteria> Surgeon Brian Jordan MD Car Ferrier none Estimated Blood Loss 0 Findings Consistent with Post-Op Diagnosis Specimens none Description of Procedure The patient was identified in the preopertive holding area, appropriate informed consents were reviewed and completed and the patient was transferred to the operative suite. Upon arrival, appropriate antibiotics and anesthesia were administered and the patient was placed in dorsal lithotomy position and prepped and draped in sterile fashion. To begin the case I passed a 22 [place] cystoscope with 30 degree lens. As a passed through the pendulous urethra, he had no evidence of stricture disease but when I encountered the bulb of the urethra he was noted to have tight urethral stricture which would not accommodate the scope. I guided a wire through this stricture and confirmed its position in the bladder with fluoroscopy. I then sequentially dilated this with S-curve dilators to 22 [place]. I was able to then pass a 22 [place] cystoscope without difficulty and inspect. He has a large prostate. He has a relatively heavily trabeculated bladder. His left ureteral orifice was identified in orthotopic position. His right ureteral orifice was identified had a somewhat mounded appearance. There were no stones visualized within the bladder, however, upon entry into the bladder he did have some clot and bleeding from the urethral dilation and this was all evacuated without distinct identification of the stone. I did inspect the clot and found no stones within the clot aside from 2 very small fragments. After my inspection I turned my attention of the right ureteral orifice and attempted to cannulated with a sensor wire a 5 [place] open-ended catheter. A gentle manipulation I was able to pass the sensor wire and there is immediate discharge of old appearing urine as this passed through the UVJ. Leaving the wire in place I withdrew the 5 [place] open-ended catheter and cystoscope and reentered with a semirigid ureteroscope which was guided into the distal right ureter. After progressing to the intramural ureter, I identified no other stones. He had mild dilation. He had no other mucosal abnormalities. I withdrew the scope and confirm no distal stones stuck at the UVJ or within the intramural ureter. At that time I elected to conclude the case. I withdrew the wire and the scope. I believe he passed his stone and the mounding was residual inflammation. He was subsequently reversed from anesthesia and taken to the PACU in stable condition. There were no complications. I attest to the content of the Intraoperative Record and any orders documented therein. Any exceptions are noted below.
--- NOTE | 2019-08-28 15:10 | Anesthesiology Progress Note ---
Date of Service August 28, 2019 Anesthesia Post Procedure Vital Signs Vital Signs: Temp Pulse Pulse Pulse Resp BP BP 08/28/19 14:55 67 17 89/51 L 08/28/19 14:46 36.2 C L 70 18 90/54 L 08/28/19 13:21 36.5 C 90 18 124/74 08/28/19 10:56 36.4 C L 80 20 112/70 08/28/19 03:42 36.7 C 83 18 117/66 08/28/19 00:00 75 08/27/19 23:38 36.4 C L 77 18 131/72 08/27/19 19:31 08/27/19 19:08 36.5 C 80 20 127/75 08/27/19 15:25 36.5 C 79 16 118/70 Pulse Ox 08/28/19 14:55 97 08/28/19 14:46 95 08/28/19 13:21 97 08/28/19 10:56 97 08/28/19 03:42 94 08/28/19 00:00 08/27/19 23:38 97 08/27/19 19:31 97 08/27/19 19:08 88 L 08/27/19 15:25 90 Pain Intensity Right Ribs: Pain Intensity: 7 Right Lower Flank: Pain Intensity: 2 Transfer of Care Handoff Completed per policy Notes Mental Status: alert / awake / arousable and participated in evaluation Patient Amnestic to Procedure: Yes Nausea / Vomiting: adequately controlled Pain: adequately controlled Airway Patency, RR, SpO2: stable & adequate BP & HR: stable & adequate Hydration State: stable & adequate Anesthetic Complications: no major complications apparent and Pt Satisfied with anesthetic care
--- NOTE | 2019-08-28 15:33 | Hospitalist Progress Note ---
Date of Service August 28, 2019 Assessment & Plan (1) Hypercalcemia: Continue admit patient to PCU on telemetry for hypercalcemia Vital signs every 4 hours Continue IV fluid hydration since calcium is 10.5 N.p.o. after midnight for the procedure and port placement for chemotherapy. Continue monitoring calcium Ionized calcium pending DVT prophylaxis heparin 5000 international units every 12 hours Full code (2) Nephrolithiasis: Discussed with urology. Status post cystoscopy. Tolerated procedure we Monitor electrolytes and replenish as needed (3) Chronic renal insufficiency, stage III (moderate): Avoid nephrotoxic agents. Continue monitoring creatinine and GFR. Continue IV fluid hydration since calcium is still 10.5 (4) Lymphoma: Follow-up with Dr. Mayes. Patient supposed to have a port placed tomorrow by Dr. Andres for chemotherapy. (5) Hyperlipidemia: Lipid panel pending, continue pravastatin 10 mg p.o. nightly. Continue aspirin 81 mg p.o. nightly preventatively for coronary artery disease. Subjective Patient seen and examined at the bedside. Right flank plain has resolved. Patient denies fever chills, chest pain, shortness of breath, abdominal pain, dysuria, hematuria. P.o. intake slowly improving. Patient underwent kurtz was seen and examined in his room this morning. Right flank pain has resolved. Patient underwent cystoscopy, right retrograde pyelogram, ureteral dilatation, and right ureter ureteroscopy this morning. Patient tolerated procedure well. Calcium improved. Patient is scheduled to have port placement tomorrow by Dr. Andres. His office is informed. Review of Systems Review of Systems: All systems reviewed & are unremarkable except as noted in HPI & below Physical Exam Constitutional: WD/WN, vitals as above well developed Eyes: PERRL, conjunctivae normal, anicteric sclerae ENMT: external ear and nose normal, oropharynx normal Neck: trachea midline, no thyromegaly Respiratory: normal respiratory effort, lungs clear to auscultation Cardiovascular: RRR, no murmur, no edema Gastrointestinal (Abdomen): normal bowel sounds, soft, nontender, no hepatosplenomegaly Musculoskeletal: no cyanosis or clubbing, extremities motor strength 5/5 Skin: no rashes, warm and dry Neurologic: patellar DTR's 2+ bilat, sensation intact Psychiatric: A+Ox3, euthymic affect Lymphatic: no cervical or axillary lymphadenopathy Results & Data Vital Signs (Past 12 Hours) Vital Signs Temp Pulse Pulse Resp BP BP Pulse Ox 08/28/19 15:30 36.4 C L 67 16 108/62 96 08/28/19 15:15 70 18 99/72 L 96 08/28/19 15:05 36.4 C L 70 18 95/63 L 96 08/28/19 14:55 67 17 89/51 L 97 08/28/19 14:46 36.2 C L 70 18 90/54 L 95 08/28/19 13:21 36.5 C 90 18 124/74 97 08/28/19 10:56 36.4 C L 80 20 112/70 97 08/28/19 03:42 36.7 C 83 18 117/66 94 PG Care Time/CCT Total # of Minutes Spent Total Time Spent with Patient: Total time spent is greater than 50% in coordination of care (as documented) at patient's floor/unit and/or counseling patient: (1) Lymphoma Lymphoma site: unspecified region Lymphoma type: unspecified type Qualified Code(s): C85.90 - Non-Hodgkin lymphoma, unspecified, unspecified site
[2019-08-28] MEDS: PRAVASTATIN SOD 10 MG TAB PO SCH (20:45)
[2019-08-28] MEDS: ASPIRIN 81 MG ECTAB PO SCH (20:45)
[2019-08-29 05:33] LABS: Basophils # (auto) 0.02 K/uL (0-0.2); Basophils % (auto) 0.3 %; Eosinophils # (auto) 0.28 K/uL (0-0.5); Eosinophils % (auto) 3.9 %; Hematocrit (blood only) 39.5 % (42-52); Hemoglobin 12.9 g/dL (14.0-18.0); Immature Granulocytes # (auto) 0.01 K/uL (0.00-0.02); Immature Granulocytes % (auto) 0.1 %; Lymphocytes # (auto) 0.59 K/uL (1.2-3.4); Lymphocytes % (auto) 8.2 %; Mean Corpuscular Hemoglobin 28.9 pg (25-34); Mean Corpuscular Hgb Conc 32.7 g/dL (32-36); Mean Corpuscular Volume 88.4 fL (80-100); Mean Platelet Volume 10.2 fL (7.4-10.4); Monocytes # (auto) 1.35 K/uL (0.11-0.59); Monocytes % (auto) 18.8 %; Neutrophils # (auto) 4.93 K/uL (1.4-6.5); Neutrophils % (auto) 68.7 %; Platelet Count 216 K/uL (130-400); RDW Coefficient of Variation 13.7 % (11.5-14.5); RDW Standard Deviation 44.4 fL (36.4-46.3); Red Blood Count 4.47 M/uL (4.7-6.1); White Blood Count 7.18 K/uL (4.8-10.8)
[2019-08-29 06:10] LABS: Albumin Level 2.4 gm/dl (3.4-5.0); BUN Creatinine Ratio 9.3 (10-20); Calcium 10.4 mg/dl (8.5-10.1); Creatinine Clr Calc Pharmacy 28.1 ml/min; Est GFR (African American) 34.6; Est GFR (Non-African American) 29.9; Potassium 4.3 mmol/L (3.5-5.1)
[2019-08-29 06:13] LABS: Albumin Globulin Ratio 0.8 (0.9-2); Bilirubin,Total 0.7 mg/dl (0.2-1); Globulin 3.1 gm/dl (2.5-4.0); Total Protein 5.5 gm/dl (6.4-8.2)
[2019-08-29] MEDS: SODIUM CHLORIDE 0.9% 1000ML 1,000 ML IV SCH (07:41)
--- NOTE | 2019-08-29 08:15 | Surgery Progress Note ---
Date of Service August 29, 2019 Assessment & Plan (1) Lymphoma: large B-cell lymphoma. Oncology is recommending port placement for access. Admitted for ureteral stone Plan for port placement The risk of the procedure were discussed to include but are not limited to bleeding, infection, pneumothorax, port failure bowel function, and the risk of anesthesia Subjective 74-year-old male with lymphoma, admitted for ureteral stone, status post cystoscopy yesterday. He is scheduled for port placement today, and would like to proceed as planned. Physical Exam Constitutional: WD/WN, vitals as above Eyes: PERRL, conjunctivae normal, anicteric sclerae ENMT: external ear and nose normal, oropharynx normal Neck: trachea midline, no thyromegaly Respiratory: normal respiratory effort, lungs clear to auscultation Cardiovascular: RRR, no murmur, no edema Gastrointestinal (Abdomen): normal bowel sounds, soft, nontender, no hepatosplenomegaly Musculoskeletal: no cyanosis or clubbing, extremities motor strength 5/5 Skin: no rashes, warm and dry Neurologic: PERRL, EOMI, accommodation nl, no face palsy, no dysarthria Psychiatric: A+Ox3, euthymic affect Lymphatic: no cervical or axillary lymphadenopathy Results & Data Vital Signs (Past 12 Hours) Vital Signs Temp Pulse Pulse Pulse Resp BP Pulse Ox 08/29/19 07:19 36.7 C 90 20 113/68 95 08/29/19 03:23 36.8 C 90 18 120/64 95 08/29/19 00:00 88 08/28/19 23:25 36.8 C 84 20 120/69 96 Laboratory Results Laboratory Results - last 24 hr 08/29/19 08/29/19 05:15 05:15 WBC 7.18 RBC 4.47 L Hgb 12.9 L Hct 39.5 L MCV 88.4 MCH 28.9 MCHC 32.7 RDW Std Deviation 44.4 RDW Coeff of Evonne 13.7 Plt Count 216 MPV 10.2 Immature Gran % (Auto) 0.1 Neut % (Auto) 68.7 Lymph % (Auto) 8.2 Toombs % (Auto) 18.8 Eos % (Auto) 3.9 Baso % (Auto) 0.3 Immature Gran # (Auto) 0.01 Neut # (Auto) 4.93 Lymph # (Auto) 0.59 L Toombs # (Auto) 1.35 H Eos # (Auto) 0.28 Baso # (Auto) 0.02 Sodium 137 Potassium 4.3 Chloride 105 Carbon Dioxide 26 Anion Gap 6.0 BUN 19 H Creatinine 2.09 H Est Cr Clr Drug Dosing 28.1 Est GFR ( Amer) 34.6 Est GFR (Non-Af Amer) 29.9 BUN/Creatinine Ratio 9.3 L Glucose 74 Calcium 10.4 H Total Bilirubin 0.7 AST 22 ALT 14 Alkaline Phosphatase 69 Total Protein 5.5 L Albumin 2.4 L Globulin 3.1 Albumin/Globulin Ratio 0.8 L Diagnostic Findings FINAL DIAGNOSIS PERIPHERAL BLOOD, BONE MARROW ASPIRATE, CORE BIOPSY AND CLOT SECTION: - MINUTE MONOCLONAL B-CELL POPULATION - NORMOCELLULAR MARROW WITH TRILINEAGE HEMATOPOIESIS COMMENT: The bone marrow biopsy shows a minute population of CD5/CD10 negative monoclonal B-cells (0.5%) by flow cytometry. These cells appear relatively small by forward scatter and are present in a hemodilute specimen. They express dim lambda light chains similar to the patient's recently diagnosed DLBCL. While a secondary CD5- low grade B-cell lymphoma or predominantly peripheral blood involvement by the B-cell lymphoma should be considered and excluded, it is felt that likely these findings do represent a small component of marrow involvement by the patient's known DLBCL. Please correlate clinically. /sc at [id number]. Clinical History DLDCL. Operation: Left posterior iliac crest bone marrow biopsy and aspiration. Gross Description A. CORE The specimen is received in a container labeled with patient name Ilia Hair. The specimen consists of a roughly cylindrical fragment of chapin and red bone which measures 0.8 cm in length and 0.2 cm in diameter. The specimen is entirely submitted in a single cassette as A for decalcification. B. CLOT The specimen is received in a container labeled with patient name Ilia Hair. The specimen consists of a 2.2 x 1.5 x 0.3 cm aggregate of dark red blood clot which is entirely submitted in a single cassette as B. SH/pw Microscopic Description PERIPHERAL SMEAR: The peripheral blood shows normocytic red blood cells without significant anisopoikilocytosis. There is no evidence of rouleaux, RBC agglutination, basophilic stippling, or circulating nucleated red blood cells. The WBC is normal; however, there is an absolute monocytosis. The remaining leukocytes are within normal absolute reference ranges. The granulocytes are mildly left- shifted and appropriately segmented without overt dysplastic features. No circulating blasts are identified. The monocytes are morphologically mature. The lymphocytes are small to moderate in size and mature, without overt atypical features. The platelets are quantitatively normal. No overtly dysplastic or gi ant forms are identified. ASPIRATE SMEAR: The bone marrow aspirate smears are spicular, cellular, and adequate for evaluation. Trilineage hematopoiesis is present with adequate maturation. Granulocytic and erythroid elements are present in normal proportions with an approximate G:E ratio of 4:1. There is no overt dysplasia of the granulocytic or erythroid lineages. The megakaryocytes display a spectrum of maturation and are evenly distributed. There is no overt lymphocytosis or increase in plasma cells. Blasts are not significantly increased. CORE BIOPSY: Examination of the bone marrow core biopsy reveals a normocellular marrow for age (30-40%) with bony trabeculae of normal thickness. Granulocytic elements demonstrate adequate maturation, without significant widening of the paratrabecu lar cuffs or atypically located immature granulocytic precursors noted. Erythroid islands are present. The megakaryocytes are normal in numbers and morphologically unremarkable without significant clustering. No atypical lymphoid aggregates are identified. Blasts are not overtly increased. CLOT SECTION: The clot section shows findings similar to the core biopsy. SPECIAL STAINS: Iron (aspirate): Iron stores are present; sideroblasts are seen; ring sideroblasts are not seen The controls react appropriately and quality assurance representative tissue present was present FLOW CYTOMETRY: - Monoclonal B-cells, consistent with a B-cell lymphoproliferative disorder (see comments) - Hemodilute specimen Comments: Flow cytometry shows a monoclonal B-cell population (0.5% of total cells) without detectable CD5, CD10 or CD11c expression, consistent with a B- cell lymphoma/leukemia. Please correlate these findings with the bone marrow biopsy report. PG Care Time/CCT Total # of Minutes Spent Total Time Spent with Patient: Total time spent is greater than 50% in coordination of care (as documented) at patient's floor/unit and/or counseling patient: (1) Lymphoma Lymphoma site: unspecified region Lymphoma type: unspecified type Qualified Code(s): C85.90 - Non-Hodgkin lymphoma, unspecified, unspecified site
--- NOTE | 2019-08-29 08:44 | Anesthesiology Consultation ---
Date of Service August 29, 2019 Assessment & Plan (1) Encounter for pre-operative examination: Chart Review Chart Review: Acceptable Risk for Surgery Consults Requested none ASA ASA3 Proposed Anesthesia Anesthesia Type: MAC Risk / Benefits Reviewed With: PT / POA / Parent / Guardian, Accepts Plan and Informed Consent Obtained History Surgery Operation Date: 08/28/19 13:40 Proposed Procedures p Cystoscopy, Right Retrograde Pyelogram, Stent Placement; Possible Ureteroscopy, Possible Laser Lithotripsy, Possible Basket Stone Extraction, Possible Ureteral Dilation - Fabricio Jordan MD Operation Date: 08/29/19 09:40 Proposed Procedures p Insertion of Mediport with Fluoroscopy - Leonides Andres DO, FACS Height/Weight Height: 5 ft 7 in Weight: 78.3 kg Allergies Allergy/AdvReac Type Severity Reaction Status Date / Time No Known Allergies Allergy Verified 08/28/19 13:23 Medications Home Medications Medication Instructions Recorded Confirmed Last Taken sodium chloride 0.65 % nasal spray 2 sprays INTNAS QID PRN 05/10/19 08/27/19 08/27/19 00:00 aerosol pravastatin 10 mg tablet 10 mg PO HS #90 tab 07/16/19 08/27/19 08/26/19 aspirin [Aspir-81] 81 mg PO HS 07/18/19 08/27/19 08/26/19 Active Medications Generic Name Dose Route Start Last Admin Trade Name Freq PRN Reason Stop Dose Admin Aspirin 81 mg 08/27/19 21:00 08/28/19 20:45 Ecotrin Ectab PO 09/26/19 20:59 81 mg HS PO Administration Hydromorphone HCl 0.5 mg 08/27/19 10:56 08/27/19 23:17 Dilaudid IV 09/10/19 10:55 0.5 mg Q2H PRN Administration Pain Sodium Chloride 1,000 mls @ 80 mls/hr 08/28/19 17:30 08/29/19 07:41 Nss 1000ml IV 09/27/19 17:29 80 mls/hr .[id number] PO Administration Pravastatin Sodium 10 mg 08/27/19 21:00 08/28/19 20:45 Pravachol PO 09/26/19 20:59 10 mg HS PO Administration NPO Date Last Intake of Fluids: 08/27/19 Time Last Intake of Fluids: 21:00 Date Last Intake of Solids: 08/27/19 Time Last Intake of Solids: 18:00 Past Medical History Medical History Chronic kidney disease (CKD) stage G3a/A1, moderately decreased glomerular filtration rate (GFR) between 45-59 mL/min/1.73 square meter and albuminuria creatinine ratio less than 30 mg/g History of stomach ulcers STOMACH ULCER 1961 Hyperlipidemia PND (post-nasal drip) Exercise / Class Metabolic Activity III < 4 Walking/Shop/Light housework Past Family History Family History Mother No problems noted. Brother Diabetes Supraventricular tachycardia Hypertension Father Diabetes Past Surgical History Surgical History History of cleft palate INFANCY History of colonoscopy History of removal of cyst LOCAL History of tonsillectomy S/P lymph node biopsy (08/01/19) Right Axillary Lymph Node Biopsy Dr. Andres 08/01/19 Past Anesthesia History No Hx of Anesthesia Complications and No Family Hx of Anesthesia Complications History of PONV No Hx of PONV and No Hx of Motion Sickness Social History Smoking Status: Former smoker tobacco type: smokeless tobacco Do You Dip or Chew Tobacco: Yes Hx Alcohol Use: Yes Alcohol type: beer alcohol intake frequency: holidays/special occasions only Hx Substance Use: No substance use type: does not use Physical Exam Vital Signs Last Vital Signs Temp 97.7 F 08/29/19 08:46 Pulse 86 08/29/19 08:46 Resp 20 08/29/19 08:46 BP 110/63 08/29/19 08:46 Pulse Ox 91 08/29/19 08:46 ENMT Mouth: no dentition abnormality Thyromental Distance: > or= 3.5 Finger Breadths Mallampati Class: II Neck normal visual inspection Respiratory normal respiratory effort Auscultation: lungs clear to auscultation bilaterally Cardiovascular Rate/Rhythm: regular rate and regular rhythm Testing Laboratory Results 08/29/19 05:15 08/29/19 05:15 Urine Color Dark Yellow 08/27/19 09:10 Urine Appearance Cloudy (Clear) A 08/27/19 09:10 Urine pH 5.5 (4.5-7.5) 08/27/19 09:10 Ur Specific [place] 1.025 (1.000-1.030) 08/27/19 09:10 Urine Protein 2+ (Negative) H 08/27/19 09:10 Urine Glucose (UA) Negative (Negative) 08/27/19 09:10 Urine Ketones Negative (Negative) 08/27/19 09:10 Urine Nitrite Negative (Negative) 08/27/19 09:10 Ur Leukocyte Esterase Negative (Negative) 08/27/19 09:10 Urine WBC (Auto) 1-5 /hpf (0-5) 08/27/19 09:10 Urine RBC (Auto) 0-4 /hpf (0-4) 08/27/19 09:10 U Hyaline Cast (Auto) 5-10 /lpf (0-5) H 08/27/19 09:10 U Epithel Cells (Auto) >30 /lpf (0-5) H 08/27/19 09:10 Urine Bacteria (Auto) Negative (Negative) 08/27/19 09:10 Electrocardiogram Date: 08/27/19 Findings: + NSR @ (at 72; NS T wave abnormality)
[2019-08-29] MEDS ORDERED: ONDANSETRON INJ 2 MG/ML 2 ML VIAL IV PRN (08:54)
[2019-08-29] MEDS ORDERED: ePHEDrine sulfate 50 MG/ML AMP IV PRN (08:54)
[2019-08-29] MEDS ORDERED: fentaNYL citrate 100 MCG/2 ML VIAL IV PRN (08:54)
[2019-08-29] MEDS ORDERED: ATROPINE SULFATE 0.1 MG/ML 10ML SYR IV PRN (08:54)
[2019-08-29] MEDS ORDERED: BUPIVACAINE 0.5 % 5 MG/1 ML PF 10ML VIAL ONE (09:02)
[2019-08-29] MEDS ORDERED: LIDOCAINE HCL 1% 20 ML VIAL ONE (09:02)
[2019-08-29] MEDS ORDERED: LIDOCAINE HCL 1% 20 ML VIAL INFIL ONE (09:21)
[2019-08-29] MEDS ORDERED: HEPARIN SODIUM (PORCINE) 5,000 UNITS in SYRINGE 0 ML IV ONE (09:22)
[2019-08-29] MEDS ORDERED: EpINEphrine HCL INJ 1 MG/ML 1ML SYRINGE IR SCH (09:45)
--- NOTE | 2019-08-29 09:48 | Progress Note ---
DATE: 08/29/2019 DIAGNOSES: 1. Abdominal pain attributable to nephrolithiasis. 2. Hypercalcemia, attributable to malignancy. 3. Hypoalbuminemia. 4. Diffuse large B cell lymphoma (stage IV). 5. Acute on chronic renal insufficiency. SUBJECTIVE: Ilia was seen and examined at bedside. He will go to the OR this morning for MediPort placement. He is scheduled to begin R-CHOP chemotherapy at [facility] tomorrow morning. Clinically, seems to be feeling much better. His calcium remains mildly elevated. Corrected probably around 12.5, I would suspect. He offers no particular complaints and nursing offers no overnight difficulties. OBJECTIVE: GENERAL: A very pleasant 74-year-old gentleman in no acute distress. VITAL SIGNS: Temperature 36.7, pulse 90, respiratory rate 20, blood pressure 113/68. SKIN: Without rash or lesion. HEENT: Oral mucosa without erythema or ulceration. NECK: Supple. He has a palpable adenopathy in both sides of his neck. HEART: Regular rate and rhythm. LUNGS: Clear to auscultation bilaterally. ABDOMEN: Soft, nontender, nondistended. EXTREMITIES: No clubbing, cyanosis or edema. NEUROLOGICAL: Grossly intact. LABORATORY DATA: WBC count 7180, hemoglobin 12.9, platelet count 216,000. Sodium 137, potassium 4.3, chloride 105, carbon dioxide 26, creatinine 2.09, BUN 19, calcium 10.4, albumin 2.4, again corrected is probably somewhere in the range of 12-12.5. IMPRESSION: 1. Stage IV diffuse large B-cell lymphoma. 2. Abdominal pain attributable to nephrolithiasis. 3. Hypercalcemia, attributable to malignancy. 4. Hypoalbuminemia. 5. Acute on chronic renal insufficiency. PLAN: Mr. Hair will have his port placed today. I would like to give him 100 mg oral dose of prednisone perhaps before he goes home. If he is able to go home today (hopefully so), I would anticipate beginning his chemotherapy as scheduled tomorrow morning at 8:00 a.m. Hypercalcemia can be monitored as outpatient, perhaps pamidronate a low dose can be administered as part of his regimen tomorrow. Clearly, the sooner he begins treatment, the better off and I think his electrolytes should stabilize. Hopefully, he will be cleared urologically and medically for discharge later on today. We will make formal arrangements to see him in the office as he begins arch out. Thank you very much again for allowing me to participate in his care.
[2019-08-29] MEDS: BUPIVACAINE 0.5 % 5 MG/1 ML MPF 30ML VIAL INFIL ONE ×2 (09:51→09:52)
--- NOTE | 2019-08-29 10:06 | Operative Report ---
PG Post Operative Report Pre & Post Diagnosis Operation Date: 08/29/19 09:40 Pre-Op Diagnosis: HYPERCALCEMIA, UROLITHIASIS,LYMPHOMA Post-Op Diagnosis: HYPERCALCEMIA, UROLITHIASIS,LYMPHOMA I identified the patient and participated in the time-out.: Yes Procedure Operation Date: 08/29/19 09:40 Actual Procedures p Insertion of Mediport with Fluoroscopy, right subclavian vein (Not Applicable) - Leonides Andres DO, HAIR Surgeon Leonides Andres DO, HAIR First Beater Ashley Rutledge Estimated Blood Loss 6 Findings Consistent with Post-Op Diagnosis Right internal jugular vein accessed using real-time ultrasound guidance. Unable to get the wire to pass, likely due to lymphadenopathy. Right subclavian accessed. Port placed to cavoatrial junction using fluoroscopy assistance. Port draws and flushes easily at conclusion of case. Specimens None Anesthesia Type MAC Complications none Disposition Accompanied Patient To Recovery: No Disposition: Recovery Room Indications 74-year-old male with lymphoma, need for long-term IV access for chemotherapy, plan for port placement. The risks of the procedure were discussed, all questions were answered, and the patient agreed to proceed with surgery as planned. Description of Procedure The patient was properly identified, consented, and taken to the operating room where he was placed in the supine position with both arms tucked and a shoulder roll placed vertically. Monitored anesthesia care was induced. SCDs and a safety belt were placed. Preoperative antibiotics were administered. The patient's chest and neck was prepped and draped in the standard sterile fashion. Surgical timeout was performed and all parties were in agreement that this was the correct patient and procedure to be performed and we continued as planned. The patient was placed in Trendelenburg position. Local anesthetic was injected along the skin incision. Using real-time ultrasound guidance the right internal jugular vein was accessed using the access needle. Multiple attempts were made to pass the wire using fluoroscopy. The wire was unable to be passed to the cavoatrial junction, likely secondary to the patient's lymphadenopathy from his disease process. At this point we remove the needle and I accessed the right subclavian vein. The wire was then passed through the needle and the needle was removed. The wire passed easily. Fluoroscopy confirmed placement into the right subclavian vein extending into the superior vena cava. A transverse skin incision was made in the right chest and a pocket was created for the port. The dilator and peel-away sheath were inserted over the wire. The catheter was then inserted through the peel-away sheath and fluoroscopy confirmed placement into the superior vena cava. The catheter was cut and attached to the port. The port was secured into place with 3-0 Prolene sutures. A final x-ray revealed good placement of the port. The wound was irrigated and hemostasis was confirmed. The skin was closed with interrupted 3-0 Vicryl deep dermal sutures, followed by 4-0 Monocryl running subcuticular suture. Dermabond was placed over the wound. The port was accessed and francesco blood easily and flushed easily. It was flushed with heparinized saline. The patient taken to the PACU where he recovered without apparent incident. All sponge, instrument and needle counts were correct at the conclusion of the procedure. The patient tolerated the procedure well. The physician's assistant superintendent was present and scrubbed for the entirety of the case, and was essential in positioning the patient, prepping and draping, retraction and exposure, placement of the port, closure of the wounds, and placement of dressings. I attest to the content of the Intraoperative Record and any orders documented therein. Any exceptions are noted below.
--- NOTE | 2019-08-29 10:07 | Operative Report ---
PG Post Operative Report Pre & Post Diagnosis Operation Date: 08/29/19 09:40 Pre-Op Diagnosis: HYPERCALCEMIA, UROLITHIASIS,LYMPHOMA Post-Op Diagnosis: HYPERCALCEMIA, UROLITHIASIS,LYMPHOMA I identified the patient and participated in the time-out.: Yes Procedure Operation Date: 08/29/19 09:40 Actual Procedures p Insertion of Mediport with Fluoroscopy(Not Applicable) - Leonides Andres DO, HAIR Surgeon Leonides Andres DO, HAIR Rack Puller Ashley Rutledge Estimated Blood Loss 6 Findings Consistent with Post-Op Diagnosis Specimens None Description of Procedure Real-time ultrasound guidance was utilized to access the internal jugular vein, however the wire was not able to be passed. Fluoroscopy was utilized and interpreted by myself throughout the procedure to assist in placement of the port. I attest to the content of the Intraoperative Record and any orders documented therein. Any exceptions are noted below.
--- NOTE | 2019-08-29 10:17 | Nephrology Progress Note ---
Date of Service August 29, 2019 Assessment & Plan (1) Acute kidney injury: 74 Year old gentleman with recent diagnosis of progressive lymphoma admitted to the hospital with flank pain. Found to have acute kidney injury and hypercalcemia which in fact has been progressing over last more than a week. Initially acute kidney injury and hyperkalemia hypercalcemia was noted on lab on 08/10/2019 when creatinine was 1.8 and calcium was 11.5 which progressively worsened and now creatinine 2.[address] A/P showed right-sided hydronephrosis with 2.5 mm ureteral stone. Acute kidney injury could be secondary to hypercalcemia. Hypercalcemia in the setting of malignancy with no bony metastasis, could be related to abnormal production of PTH, Calcitriol or PTHrP. Had ureteroscopy for right-sided hydronephrosis on 08/28/19 and port placement 08/29/19 to start on chemotherapy with R-CHOP Calcium continues to improve with IV hydration, PTH appropriately suppressed. Renal function stable without much improvement over last 3 days --continue on IV fluid, repeat calcium every 12 hours. --continue to encourage increased p.o. intake --if there is any evidence of fluid overload, will consider loop diuretics otherwise hold off on diuretics for now as pt is getting prepared for chemo. Will follow (2) Nephrolithiasis: (3) Hypercalcemia: (4) Lymphoma: Fadi Morillo went for port palacement, spoke with his in room. he wilkins sbeen doing well. BP well controlled, Ca better, Cr stable. Decent UO Results & Data Vital Signs (Past 12 Hours) Vital Signs Temp Pulse Pulse Pulse Resp BP Pulse Ox 08/29/19 08:46 36.5 C 86 20 110/63 91 08/29/19 07:19 36.7 C 90 20 113/68 95 08/29/19 03:23 36.8 C 90 18 120/64 95 08/29/19 00:00 88 08/28/19 23:25 36.8 C 84 20 120/69 96 PG Care Time/CCT Total # of Minutes Spent Total Time Spent with Patient: Total time spent is greater than 50% in coordination of care (as documented) at patient's floor/unit and/or counseling patient: (1) Lymphoma Lymphoma site: unspecified region Lymphoma type: unspecified type Qualified Code(s): C85.90 - Non-Hodgkin lymphoma, unspecified, unspecified site
--- NOTE | 2019-08-29 10:25 | Anesthesiology Progress Note ---
Date of Service August 29, 2019 Anesthesia Post Procedure Vital Signs Vital Signs: Temp Pulse Pulse Pulse Resp BP BP 08/29/19 10:18 97.5 F L 86 16 108/61 08/29/19 08:46 97.7 F 86 20 110/63 08/29/19 07:19 98.1 F 90 20 113/68 08/29/19 03:23 98.2 F 90 18 120/64 08/29/19 00:00 88 08/28/19 23:25 98.2 F 84 20 120/69 08/28/19 19:45 97.7 F 92 H 18 132/76 08/28/19 17:30 88 18 128/74 08/28/19 17:00 88 18 129/72 08/28/19 16:30 90 19 120/71 08/28/19 16:14 68 08/28/19 16:00 73 18 130/66 08/28/19 15:30 97.5 F L 67 16 108/62 08/28/19 15:15 70 18 99/72 L 08/28/19 15:05 97.5 F L 70 18 95/63 L 08/28/19 14:55 67 17 89/51 L 08/28/19 14:46 97.2 F L 70 18 90/54 L 08/28/19 13:21 97.7 F 90 18 124/74 08/28/19 10:56 97.5 F L 80 20 112/70 Pulse Ox 08/29/19 10:18 95 08/29/19 08:46 91 08/29/19 07:19 95 08/29/19 03:23 95 08/29/19 00:00 08/28/19 23:25 96 08/28/19 19:45 97 08/28/19 17:30 98 08/28/19 17:00 98 08/28/19 16:30 97 08/28/19 16:14 08/28/19 16:00 99 08/28/19 15:30 96 08/28/19 15:15 96 08/28/19 15:05 96 08/28/19 14:55 97 08/28/19 14:46 95 08/28/19 13:21 97 08/28/19 10:56 97 Pain Intensity Right Ribs: Pain Intensity: 7 Right Lower Flank: Pain Intensity: 2 Transfer of Care Handoff Completed per policy Notes Mental Status: alert / awake / arousable and participated in evaluation Patient Amnestic to Procedure: Yes Nausea / Vomiting: adequately controlled Pain: adequately controlled Airway Patency, RR, SpO2: stable & adequate BP & HR: stable & adequate Hydration State: stable & adequate Anesthetic Complications: no major complications apparent and Pt Satisfied with anesthetic care
--- NOTE | 2019-08-29 10:27 | Communication Note ---
Date of Service: August 29, 2019 Pt not formally evaluated today due to patient being off floor for mediport insertion as scheduled. at bedside, discussed plan to maintain stent for 2- 3 weeks and re-evaluate in office. RN requesting pyridium for dysuria, will order 100mg BID - due to renal function. Will see patient tomorrow. Cr unchanged this AM.
--- NOTE | 2019-08-29 10:57 | XRay Report ---
XR chest 1V portable CLINICAL HISTORY: 74 years-old Male presenting with post op port placement. TECHNIQUE: Portable upright AP view of the chest was obtained. COMPARISON: 08/27/2019. FINDINGS: Right subclavian Mediport terminates in the lower SVC. Cardiac silhouette mildly enlarged. Prominence of the bilateral morgan as on prior exam. New perihilar added density with vascular prominence and int erstitial prominence. Bibasilar added density new from prior. Mildly low lung volumes. Suspected trac e bilateral pleural effusions. No pneumothorax. Degenerative changes of the thoracic spine. Upper abd omen normal. IMPRESSION: 1. Interval placement of a right subclavian Mediport, which is appropriately positioned. No pneumoth orax. 2. Mediastinal lymphadenopathy evidenced by hilar prominence. 3. Interval development of volume overload and congestive change. Developing/early pulmonary edema i s suspected. 4. Bilateral trace pleural effusions. Electronically signed by: Ilia Lopez M.D. 08/29/2019 10:56 AM
[2019-08-29] MEDS ORDERED: PHENAZOPYRIDINE HCL 100 MG TAB PO PRN (15:25)
[2019-08-29] MEDS ORDERED: predniSONE 50 MG TAB PO STA (15:41)
--- NOTE | 2019-08-29 16:05 | Hospitalist Progress Note ---
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 Patient will get to the [facility] at 8 AM and will undergo with chemotherapy RCHOP ordered by Dr. Mayes oncologist. Appreciate Dr. Mayes recommendations and given 100 mg of prednisone x1 p.o. tonight prior to chemotherapy tomorrow. Continue admit patient to PCU on telemetry for hypercalcemia Vital signs every 4 hours Continue IV fluid hydration since calcium is 10.4-corrected calcium 11.7 . Appreciate nephrology recommendations. Patient refused to stay in the hospital for the management of hypercalcemia and decided to go home, but stated that he is going to drink 8 cups of water and be present at 8 AM and the [facility] for chemotherapy. Patient requested to be discharged home. ER warnings given. Patient advised if any signs of increasing thirst urination, stomach pain, nausea, bone pain, muscle weakness confusion and fatigue he should come back to the emergency room because that would be signed that he is hypercalcemia is worsening. Full code (2) Nephrolithiasis: Discussed with urology. Status post cystoscopy. Tolerated procedure we Monitor electrolytes and replenish as needed (3) Chronic renal insufficiency, stage III (moderate): Avoid nephrotoxic agents. Continue monitoring creatinine and GFR. Continue IV fluid hydration since calcium is still 10.4 (4) Lymphoma: Follow-up with Dr. Mayes tomorrow for chemotherapy. Port is placed. (5) Hyperlipidemia: Continue pravastatin 10 mg p.o. nightly. Continue aspirin 81 mg p.o. nightly preventatively for coronary artery disease. Subjective Patient seen and examined at the bedside. Tolerated port placement well. Patient son is sitting next to him. Patient understands that would be better if he stays in the hospital overnight to decrease his calcium level which is now 10.4 but patient expressed that he wants to go home and rest and prepare himself for tomorrow chemotherapy at 8 AM in the cancer center with Dr. Mayes. Patient was given 100 mg of prednisone p.o. before discharge and patient said that he will be tomorrow at 8 AM for chemotherapy. Patient understand that chemotherapy will last approximately 6 to 8 hours. Patient also understand that he needs to drink at least 6 to 8 cups of water while at home to keep current calcium level down. Patient denies fever, chills, chest pain, shortness of breath, abdominal pain, frequency, urgency, twitching of the muscles, syncope, near syncope, renal colic. Review of Systems Review of Systems: All systems reviewed & are unremarkable except as noted in HPI & below Physical Exam Constitutional: WD/WN, vitals as above well developed Eyes: PERRL, conjunctivae normal, anicteric sclerae ENMT: external ear and nose normal, oropharynx normal Neck: trachea midline, no thyromegaly Respiratory: normal respiratory effort, lungs clear to auscultation Cardiovascular: RRR, no murmur, no edema Gastrointestinal (Abdomen): normal bowel sounds, soft, nontender, no hepatosplenomegaly Musculoskeletal: no cyanosis or clubbing, extremities motor strength 5/5 Skin: no rashes, warm and dry Port placed in the right upper chest. Clean dry intact. Neurologic: patellar DTR's 2+ bilat, sensation intact Psychiatric: A+Ox3, euthymic affect Lymphatic: no cervical or axillary lymphadenopathy Results & Data Vital Signs (Past 12 Hours) Vital Signs Temp Pulse Pulse Resp BP Pulse Ox 08/29/19 12:45 91 H 20 120/75 98 08/29/19 12:15 85 20 125/68 96 08/29/19 11:45 81 20 119/68 95 08/29/19 11:30 79 20 110/66 94 08/29/19 11:15 36.6 C 85 20 113/65 95 08/29/19 11:07 36.6 C 83 20 113/70 95 08/29/19 10:45 36.4 C L 78 16 112/64 94 08/29/19 10:35 85 16 106/64 95 08/29/19 10:25 86 16 107/59 L 96 08/29/19 10:18 36.4 C L 86 16 108/61 95 08/29/19 08:46 36.5 C 86 20 110/63 91 08/29/19 07:19 36.7 C 90 20 113/68 95 PG Care Time/CCT Total # of Minutes Spent Total Time Spent with Patient: Total time spent is greater than 50% in coordination of care (as documented) at patient's floor/unit and/or counseling patient: (1) Lymphoma Lymphoma site: unspecified region Lymphoma type: unspecified type Qualified Code(s): C85.90 - Non-Hodgkin lymphoma, unspecified, unspecified site
--- NOTE | 2019-08-29 16:28 | Discharge Summary ---
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 Patient said nothing relieves his pain. Pain is colicky comes and goes. Nature it is shooting and radiating to his right groin. Patient did not notice any blood in his urine. Patient knows he has lymphoma and needs treatment for it. Patient denies being febrile. In review of system patient denies fever, chills, chest pain, shortness of breath, abdominal pain except for right costovertebral angle tenderness, urgency, frequency, dysuria, hematuria, syncope or near syncope. Labs reviewed: WBC 6.43, hemoglobin 14, hematocrit 42, sodium 138, potassium 3.7, chloride 104, BUN 25, creatinine 2.02, GFR 31.1, Calcium 12.4. Troponin 0 0.05, urine pending; CT abdomen pelvis:1. 2.8 mm right UVJ calculus with secondary obstructive change 2. Moderately extensive progressive abdominal and pelvic lymphadenopathy, consistent with the patient's known lymphoma 3. Pandiverticulosis. No evidence of acute diverticulitis 4. Normal appendix 5. Prostatomegaly The decision was made to admit patient to PCU on telemetry for hypercalcemia, nephrolithiasis, worsening chronic kidney insufficiency, hydration and further evaluation treatment. Principal Diagnosis none Discharge Exam Constitutional WD/WN, vitals as above well developed Eyes PERRL, conjunctivae normal, anicteric sclerae ENMT external ear and nose normal, oropharynx normal Neck trachea midline, no thyromegaly Respiratory normal respiratory effort, lungs clear to auscultation Cardiovascular RRR, no murmur, no edema Gastrointestinal (Abdomen) normal bowel sounds, soft, nontender, no hepatosplenomegaly Musculoskeletal no cyanosis or clubbing, extremities motor strength 5/5 Skin no rashes, warm and dry Neurologic patellar DTR's 2+ bilat, sensation intact Psychiatric A+Ox3, euthymic affect Lymphatic no cervical or axillary lymphadenopathy Discharge Data Allergies Allergy/AdvReac Type Severity Reaction Status Date / Time No Known Allergies Allergy Verified 08/28/19 13:23 Consultations 08/27/19 08:45 ED Decision to Admit Stat 08/27/19 10:56 Consult Hematology Routine Consult Nephrology Routine Consult Urology Routine Procedures Performed Operation Date: 08/28/19 13:40 Actual Procedures p Cystoscopy, Right Retrograde Pyelogram, Urethral Dilation, Right Ureteroscopy(Right) - Fabricio Jordan MD Operation Date: 08/29/19 09:40 Actual Procedures p Insertion of Mediport with Fluoroscopy(Not Applicable) - Leonides Andres, DO, FACS Ordered Studies 08/27/19 07:15 CT abd pelvis wo con Stat CT chest wo con Stat 08/28/19 14:00 FL fluoroscopy <1hr Routine 08/29/19 09:40 FL fluoro (infusaport) to 1 hr Routine Hospital Course (1) Hypercalcemia: Patient expressed that he wants to go home tonight to be able to prepare himself for chemotherapy tomorrow for 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 Patient will get to the [facility] at 8 AM and will undergo with chemotherapy RCHOP ordered by Dr. Mayes oncologist. Appreciate Dr. Mayes recommendations and given 100 mg of prednisone x1 p.o. tonight prior to chemotherapy tomorrow. Continue admit patient to PCU on telemetry for hypercalcemia Vital signs every 4 hours Continue IV fluid hydration since calcium is 10.4-corrected calcium 11.7 . Appreciate nephrology recommendations. Patient refused to stay in the hospital for the management of hypercalcemia and decided to go home, but stated that he is going to drink 8 cups of water and be present at 8 AM and the [facility] for chemotherapy. Patient requested to be discharged home. ER warnings given. Patient advised if any signs of increasing thirst urination, stomach pain, nausea, bone pain, muscle weakness confusion and fatigue he should come back to the emergency room because that would be signed that he is hypercalcemia is worsening. Full code (2) Nephrolithiasis: Discussed with urology. Status post cystoscopy. Tolerated procedure we Monitor electrolytes and replenish as needed (3) Chronic renal insufficiency, stage III (moderate): Avoid nephrotoxic agents. Continue monitoring creatinine and GFR. Continue IV fluid hydration since calcium is still 10.4 (4) Lymphoma: Follow-up with Dr. Mayes tomorrow for chemotherapy. Port is placed. (5) Hyperlipidemia: Continue pravastatin 10 mg p.o. nightly. Continue aspirin 81 mg p.o. nightly preventatively for coronary artery disease. Total Time Total Time Spent Total Time Spent (In Minutes): over 30 min Discharge Plan Discharge Items Patient Disposition: Home - Self-Care Reason For Visit: HYPERCALCEMIA, UROLITHIASIS,LYMPHOMA Discharge Diagnosis: Hypercalcemia, Urolithiasis, progressive lymphoma Activity: As commented below Lifting: Gradually increase as tolerated Non-emergency contact: Primary Care Provider and Oncologist Call non-emergency contact if: you have any medication questions, your symptoms worsen, your pain is not controlled, your pain is worsening, your pain is u nusual for you, your pain is concerning for you, you have a fever, your temperature is above 101, your temperature is above 101.5, your wound has increased redness, your wound has increased drainage and your wound pain has increased Follow-up/Referrals: Ilia Andrews MD [Primary Care Provider] - Leonides Andres DO, FACS [Physician] - Diet: Heart Healthy Fluids: 2000ml (8 cups) Addtl Attending Provider Instructions: Your port may be used as early as today.Please follow up for chemotherapy at 8 AM tomorrow on 08/30/2019 at the cancer center with . Drink at least 6-8 cups of pure water daily.Follow up with PCP in 3 days.Check labs CBC and CMP. Pending Studies at Discharge: No Stand-Alone Forms: [employer], Smoking Cessation Medications and DC Order Prescriptions: New phenazopyridine [Pyridium] 100 mg Tablet 100 mg PO BID PRN (Reason: pain) Qty: 20 RF: 0 Continued sodium chloride [Saline Nasal] 0.65 % aerosol,spray 2 sprays INTNAS QID PRN (Reason: Nasal Congestion) RF: 0 pravastatin 10 mg tablet 10 mg PO HS Qty: 90 RF: 0 aspirin [Aspir-81] 81 mg Tablet,Delayed Release (Dr/Ec) 81 mg PO HS RF: 0 Discharge Orders: Discharge Order (Routine); Ordered 08/29/19 Ordered By: Deysi Holbrook Admission Data Admit Date/Time: 08/27/19 09:20 Attending Provider: Deysi Holbrook Admit Provider: Deysi Holbrook Primary Care Provider: Ilia Andrews Other Providers: Rome Jean ; Deysi Holbrook ; Rome Solomon ; Juan Mayes V
[2019-09-01 02:31] LABS: PTH Related Protein 11 pg/mL (14-27); Vitamin D 1,25 149 pg/mL (18-72); Vitamin D3,1,25 149 pg/mL
== END 2019-08-29 17:40 | disposition home or self-care (01) | DRG 824 ==
LOC: ED 05:49 → 2E 09:20

== ENCOUNTER 2019-10-01 10:58 | Inpatient (IN) ==
[2019-10-01] MEDS ORDERED: DAPTOmycin 400 MG in SYRINGE 0 ML IV ONE (13:02)
[2019-10-01] MEDS ORDERED: CEFEPIME 2,000 MG/20 ML VIAL IV STA (13:02)
[2019-10-01] MEDS ORDERED: SODIUM CHLORIDE 0.9% 1000ML 2,000 ML IV ONE (13:02)
[2019-10-01] MEDS ORDERED: SODIUM CHLORIDE 0.9% 1000ML 250 ML IV ONE (13:20)
[2019-10-01 13:33] LABS: Hematocrit (blood only) 32.9 % (42-52); Hemoglobin 10.8 g/dL (14.0-18.0); Mean Corpuscular Hemoglobin 27.8 pg (25-34); Mean Corpuscular Hgb Conc 32.8 g/dL (32-36); Mean Corpuscular Volume 84.6 fL (80-100); Mean Platelet Volume 9.7 fL (7.4-10.4); Platelet Count 336 K/uL (130-400); RDW Coefficient of Variation 14.6 % (11.5-14.5); RDW Standard Deviation 44.9 fL (36.4-46.3); Red Blood Count 3.89 M/uL (4.7-6.1)
[2019-10-01] MEDS ORDERED: SODIUM CHLORIDE 0.9% 250 ML IV ONE (13:39)
[2019-10-01 13:42] LABS: INR 1.2 (0.9-1.1); Partial Thromboplastin Ratio 1.2; Partial Thromboplastin Time 33.3 Seconds (21.0-31.0); Prothrombin Time 11.9 Seconds (9.0-12.0)
[2019-10-01 13:47] LABS: Albumin Level 2.4 gm/dl (3.4-5.0); Aspartate Aminotransferase 15 U/L (15-37); BUN Creatinine Ratio 24.2 (10-20); Blood Urea Nitrogen 19 mg/dl (7-18); Calcium 8.2 mg/dl (8.5-10.1); Carbon Dioxide 25 mmol/L (21-32); Chloride 101 mmol/L (98-107); Creatinine Clr Calc Pharmacy 73.4 ml/min; Est GFR (African American) 100.6; Est GFR (Non-African American) 86.8; Glucose 126 mg/dl (70-99); Potassium 3.6 mmol/L (3.5-5.1); Sodium 132 mmol/L (136-145)
[2019-10-01 13:52] LABS: Alanine Aminotransferase 22 U/L (12-78); Albumin Globulin Ratio 0.8 (0.9-2); Alkaline Phosphatase 92 U/L (45-117); Bilirubin,Total 0.8 mg/dl (0.2-1); Creatine Kinase 33 U/L (39-308); Creatine Kinase MB < 1.0 ng/ml (0.5-3.6); Globulin 2.9 gm/dl (2.5-4.0); Total Protein 5.3 gm/dl (6.4-8.2)
[2019-10-01 14:02] LABS: Eosinophils # (auto) 0.33 K/uL (0-0.5); Lymphocytes # (auto) 0.14 K/uL (1.2-3.4); Lymphocytes % (auto) 23.3 %; Monocytes # (auto) 0.06 K/uL (0.11-0.59); Neutrophils # (auto) 0.07 K/uL (1.4-6.5); Neutrophils % (auto) 11.7 %
--- NOTE | 2019-10-01 14:11 | XRay Report ---
XR chest 1V portable HISTORY: Sepsis COMPARISON: Chest 08/29/2019. FINDINGS: No pneumothorax. No pleural effusions. The lungs are clear. The heart is normal in size. Ri ght subclavian Port-A-Cath terminates at the SVC. Mediastinal and bilateral hilar prominence has esse ntially resolved. This suggests improvement in the lymphadenopathy. IMPRESSION: 1. No acute process within the chest. 2. Interval improvement in the mediastinal and hilar enlargement consistent with resolving lymphadeno michael. Electronically signed by: Lalito Brito M.D. 10/01/2019 2:10 PM
[2019-10-01 15:05] LABS: Influenza A virus by PCR Neg for Influ A (Neg); Influenza B virus by PCR Neg for Influ B (Neg)
[2019-10-01] MEDS ORDERED: VANCOMYCIN CONSULT ACTIVE PRN (15:18)
[2019-10-01] MEDS ORDERED: VANCOMYCIN HCL 1,000 MG/270 ML BAG IV STA (15:18)
--- NOTE | 2019-10-01 15:56 | Emergency Department Note ---
Entered by Rita Bhakta acting as a scribe for Dariusz Rodriguez MD History of Present Illness General Source: patient History of Present Illness Provider complaint: Fever Onset (ago): hour(s) 1 Radiation: non-radiation Maximum Pain Intensity: 5 Relieved By: + none Exacerbated By: + none Associated symptoms: + weakness and + other (Gas) The patient is a 74 year old male who presents to the Emergency Room with complaints of a fever of about 100-100.9 that began this morning. The patient states he called his Oncologists office as a result of the fever and they had him come in for blood work. The patient states the symptoms do not radiate anywhere else on his body and are not relieved nor exacerbated by anything specific. The patient reports experiencing weakness and gas but has not taken any medications for his symptoms. 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 Home Medications Home Medications Medication Instructions Recorded Confirmed Type sodium chloride 0.65 % nasal spray 2 sprays INTNAS QID PRN 05/10/19 10/01/19 History aerosol pravastatin 10 mg tablet 10 mg PO HS #90 tab 07/16/19 10/01/19 History aspirin [Aspir-81] 81 mg PO HS 07/18/19 10/01/19 History R-Chop Chemo 1 dose IV UD 10/01/19 10/01/19 History pegfilgrastim [Neulasta] 6 mg SUBCUT UD 10/01/19 10/01/19 History prednisone 100 mg PO UD 10/01/19 10/01/19 History Allergies Allergy/AdvReac Type Severity Reaction Status Date / Time No Known Allergies Allergy Verified 10/01/19 14:17 Past Med/Surg History Medical History Chronic kidney disease (CKD) stage G3a/A1, moderately decreased glomerular filtration rate (GFR) between 45-59 mL/min/1.73 square meter and albuminuria creatinine ratio less than 30 mg/g History of stomach ulcers STOMACH ULCER 1961 Hyperlipidemia PND (post-nasal drip) Port-A-Cath in place (08/29/19) Insertion of Mediport with Fluoroscopy Dr. Andres 08/29/19 Surgical History History of cleft palate INFANCY History of colonoscopy History of removal of cyst LOCAL History of tonsillectomy S/P lymph node biopsy (08/01/19) Right Axillary Lymph Node Biopsy Dr. Andres 08/01/19 Family History Mother No problems noted. 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 and A total of 10 systems reviewed and were otherwise negative Physical Exam Vital Signs Vital Signs - 24 hr 10/01/19 11:38 10/01/19 13:17 10/01/19 14:15 Temperature 38.5 C H Temperature Source Oral Pulse Rate 128 H Pulse Rate [Apical] 102 H 98 H Respiratory Rate 20 20 16 Respiratory Effort / Characteristics Non-Labored Spontaneous Respiratory Depth Normal Blood Pressure 98/59 L Blood Pressure [Right Arm] 105/63 114/64 Blood Pressure Mean 72 Blood Pressure Mean [Right Arm] 77 80 Pulse Oximetry 96 Oxygen Delivery Method Room Air Sepsis Recent Fever Within 48 Hours Yes Sepsis New/Unexplained Change in Mental Status No Sepsis Action Taken by Nursing No Action Required GENERAL: Awake, alert, well-appearing, in no acute distress. HENT: Normocephalic, atraumatic. Oropharynx unremarkable. EYES: Normal conjunctiva. Sclera non-icteric. NECK: Supple. No nuchal rigidity. FROM. No JVD. RESPIRATORY: Clear to auscultation. CHEST: Port in place right chest wall. CARDIAC: Regular rate, normal rhythm. Extremities warm and well perfused. Pulses equal. ABDOMEN: Soft, non-distended. No tenderness to palpation. No rebound or guarding. No masses. RECTAL: Deferred. MUSCULOSKELETAL: Chest examination reveals no tenderness. The back is symmetrical on inspection without obvious abnormality. There is no CVA tenderness to palpation. No joint edema. LOWER EXTREMITIES: Calves are equal size bilaterally and non-tender. No edema. No discoloration. NEURO: Normal sensorium. No sensory or motor deficits noted. SKIN: No rash or jaundice noted. Course Course 1300: Past medical records reviewed. The patient was evaluated in room A10. A complete history and physical exam was performed. 1518: I spoke with Dr. Blackburn- Hospitalist about the patient's case and he will accept the patient for further evaluation. Administered Medications Discontinued Medications Cefepime HCl (Maxipime) 2,000 mg in 20 mls @ 5 mls/min IV NOW STA Stop: 10/01/19 13:05 Last Admin: 10/01/19 14:24 Dose: 5 mls/min Documented by: [id number] Sodium Chloride (Nss 1000ml) 2,000 mls @ 999 mls/hr IV .Q2H1M ONE Stop: 10/01/19 15:02 Last Admin: 10/01/19 13:15 Dose: 999 mls/hr Documented by: [id number] Medical Decision Making Differential Diagnosis Differential diagnosis: Etiologies such as viral syndrome, otitis, pharyngitis, pneumonia, influenza, meningitis, urinary tract infection, sepsis, bacteremia, as well as others were entertained. Medical Records Attestation: I reviewed the patient's medical records. Home Medications Current Medication List: was personally reviewed by me Laboratory Data Attestation: I reviewed the patient's lab results. Result diagrams: 10/01/19 13:15 10/01/19 13:15 Lab Results 10/01/19 10/01/19 10/01/19 Range/Units 13:15 13:15 13:15 WBC 0.60 L* (4.8-10.8) K/uL RBC 3.89 L (4.7-6.1) M/uL Hgb 10.8 L (14.0-18.0) g/dL Hct 32.9 L (42-52) % MCV 84.6 (80-100) fL MCH 27.8 (25-34) pg MCHC 32.8 (32-36) g/dL RDW Std Deviation 44.9 (36.4-46.3) fL RDW Coeff of Evonne 14.6 H (11.5-14.5) % Plt Count 336 (130-400) K/uL MPV 9.7 (7.4-10.4) fL Immature Gran % (Auto) 0.0 % Neut % (Auto) 11.7 % Lymph % (Auto) 23.3 % Faulkner % (Auto) 10.0 % Eos % (Auto) 55.0 % Baso % (Auto) 0.0 % Immature Gran # (Auto) 0.00 (0.00-0.02) K/uL Neut # (Auto) 0.07 L* (1.4-6.5) K/uL Lymph # (Auto) 0.14 L (1.2-3.4) K/uL Faulkner # (Auto) 0.06 L (0.11-0.59) K/uL Eos # (Auto) 0.33 (0-0.5) K/uL Baso # (Auto) 0.00 (0-0.2) K/uL PT 11.9 (9.0-12.0) Seconds INR 1.2 H (0.9-1.1) APTT 33.3 H (21.0-31.0) Seconds PTT Ratio 1.2 Sodium 132 L (136-145) mmol/L Potassium 3.6 (3.5-5.1) mmol/L Chloride 101 (98-107) mmol/L Carbon Dioxide 25 (21-32) mmol/L Anion Gap 5.0 (3-11) BUN 19 H (7-18) mg/dl Creatinine 0.80 (0.6-1.4) mg/dl Est Cr Clr Drug Dosing 73.4 ml/min Est GFR ( Amer) 100.6 Est GFR (Non-Af Amer) 86.8 BUN/Creatinine Ratio 24.2 H (10-20) Glucose 126 H (70-99) mg/dl Lactate (0.4-2.0) mmol/L Calcium 8.2 L (8.5-10.1) mg/dl Total Bilirubin 0.8 (0.2-1) mg/dl AST 15 (15-37) U/L ALT 22 (12-78) U/L Alkaline Phosphatase 92 (45-117) U/L Total Creatine Kinase 33 L (39-308) U/L CK-MB (CK-2) < 1.0 (0.5-3.6) ng/ml CK/CKMB % Calc TNP Troponin I (0-0.045) ng/ml Total Protein 5.3 L (6.4-8.2) gm/dl Albumin 2.4 L (3.4-5.0) gm/dl Globulin 2.9 (2.5-4.0) gm/dl Albumin/Globulin Ratio 0.8 L (0.9-2) Procalcitonin (0-0.5) ng/ml Influenza Type A (PCR) (Neg) Influenza Type B (PCR) (Neg) 10/01/19 10/01/19 10/01/19 Range/Units 13:15 13:15 13:15 WBC (4.8-10.8) K/uL RBC (4.7-6.1) M/uL Hgb (14.0-18.0) g/dL Hct (42-52) % MCV (80-100) fL MCH (25-34) pg MCHC (32-36) g/dL RDW Std Deviation (36.4-46.3) fL RDW Coeff of Evonne (11.5-14.5) % Plt Count (130-400) K/uL MPV (7.4-10.4) fL Immature Gran % (Auto) % Neut % (Auto) % Lymph % (Auto) % Faulkner % (Auto) % Eos % (Auto) % Baso % (Auto) % Immature Gran # (Auto) (0.00-0.02) K/uL Neut # (Auto) (1.4-6.5) K/uL Lymph # (Auto) (1.2-3.4) K/uL Faulkner # (Auto) (0.11-0.59) K/uL Eos # (Auto) (0-0.5) K/uL Baso # (Auto) (0-0.2) K/uL PT (9.0-12.0) Seconds INR (0.9-1.1) APTT (21.0-31.0) Seconds PTT Ratio Sodium (136-145) mmol/L Potassium (3.5-5.1) mmol/L Chloride (98-107) mmol/L Carbon Dioxide (21-32) mmol/L Anion Gap (3-11) BUN (7-18) mg/dl Creatinine (0.6-1.4) mg/dl Est Cr Clr Drug Dosing ml/min Est GFR ( Amer) Est GFR (Non-Af Amer) BUN/Creatinine Ratio (10-20) Glucose (70-99) mg/dl Lactate 1.5 (0.4-2.0) mmol/L Calcium (8.5-10.1) mg/dl Total Bilirubin (0.2-1) mg/dl AST (15-37) U/L ALT (12-78) U/L Alkaline Phosphatase (45-117) U/L Total Creatine Kinase (39-308) U/L CK-MB (CK-2) (0.5-3.6) ng/ml CK/CKMB % Calc Troponin I < 0.015 (0-0.045) ng/ml Total Protein (6.4-8.2) gm/dl Albumin (3.4-5.0) gm/dl Globulin (2.5-4.0) gm/dl Albumin/Globulin Ratio (0.9-2) Procalcitonin 0.13 (0-0.5) ng/ml Influenza Type A (PCR) (Neg) Influenza Type B (PCR) (Neg) 10/01/19 Range/Units 14:10 WBC (4.8-10.8) K/uL RBC (4.7-6.1) M/uL Hgb (14.0-18.0) g/dL Hct (42-52) % MCV (80-100) fL MCH (25-34) pg MCHC (32-36) g/dL RDW Std Deviation (36.4-46.3) fL RDW Coeff of Evonne (11.5-14.5) % Plt Count (130-400) K/uL MPV (7.4-10.4) fL Immature Gran % (Auto) % Neut % (Auto) % Lymph % (Auto) % Faulkner % (Auto) % Eos % (Auto) % Baso % (Auto) % Immature Gran # (Auto) (0.00-0.02) K/uL Neut # (Auto) (1.4-6.5) K/uL Lymph # (Auto) (1.2-3.4) K/uL Faulkner # (Auto) (0.11-0.59) K/uL Eos # (Auto) (0-0.5) K/uL Baso # (Auto) (0-0.2) K/uL PT (9.0-12.0) Seconds INR (0.9-1.1) APTT (21.0-31.0) Seconds PTT Ratio Sodium (136-145) mmol/L Potassium (3.5-5.1) mmol/L Chloride (98-107) mmol/L Carbon Dioxide (21-32) mmol/L Anion Gap (3-11) BUN (7-18) mg/dl Creatinine (0.6-1.4) mg/dl Est Cr Clr Drug Dosing ml/min Est GFR ( Amer) Est GFR (Non-Af Amer) BUN/Creatinine Ratio (10-20) Glucose (70-99) mg/dl Lactate (0.4-2.0) mmol/L Calcium (8.5-10.1) mg/dl Total Bilirubin (0.2-1) mg/dl AST (15-37) U/L ALT (12-78) U/L Alkaline Phosphatase (45-117) U/L Total Creatine Kinase (39-308) U/L CK-MB (CK-2) (0.5-3.6) ng/ml CK/CKMB % Calc Troponin I (0-0.045) ng/ml Total Protein (6.4-8.2) gm/dl Albumin (3.4-5.0) gm/dl Globulin (2.5-4.0) gm/dl Albumin/Globulin Ratio (0.9-2) Procalcitonin (0-0.5) ng/ml Influenza Type A (PCR) Neg for Influ A (Neg) Influenza Type B (PCR) Neg for Influ B (Neg) Imaging Data Radiologist's Impression: Radiology results as stated below per my review and the radiologist's interpretation: XR chest 1V portable HISTORY: Sepsis COMPARISON: Chest 08/29/2019. FINDINGS: No pneumothorax. No pleural effusions. The lungs are clear. The heart is normal in size. Right subclavian Port-A-Cath terminates at the SVC. Mediastinal and bilateral hilar prominence has essentially resolved. This suggests improvement in the lymphadenopathy. IMPRESSION: 1. No acute process within the chest. 2. Interval improvement in the mediastinal and hilar enlargement consistent with resolving lymphadenopathy. Electronically signed by: Lalito Brito M.D. 10/01/2019 2:10 PM ECG Data Attestation: I personally reviewed and interpreted this ECG as follows: Indication: + other (Fever) Rate (beats per minute): 103 Rhythm: + sinus tachycardia ECG Intervals/blocks: + Normal QT-c (QTC 458) ECG ST segments: + Normal ST segments ECG Findings: + Other (Normal axis ) Blood Pressure Blood Pressure Findings: Normal blood pressure Blood Pressure Disposition: further management by hospitalist Discharge Plan Visit Data Chief Complaint: Fever Stated Complaint: WHITE BLOOD COUNT WAY DOWN ED Provider: Dariusz Rodriguez Prescriptions Prescriptions: No Action sodium chloride [Saline Nasal] 0.65 % aerosol,spray 2 sprays INTNAS QID PRN (Reason: Nasal Congestion) RF: 0 pravastatin 10 mg tablet 10 mg PO HS Qty: 90 RF: 0 prednisone 20 mg tablet 100 mg PO UD RF: 0 Neulasta 6 mg/0.6mL Syringe 6 mg SUBCUT UD RF: 0 R-Chop Chemo 1 dose IV UD RF: 0 aspirin [Aspir-81] 81 mg Tablet,Delayed Release (Dr/Ec) 81 mg PO HS RF: 0
--- NOTE | 2019-10-01 17:11 | History & Physical Report ---
Date of Service October 01, 2019 Assessment & Plan (1) Neutropenic fever: 74-year-old male was referred by his oncologist for admission for neutropenic fever. Neutropenic fever, on chemotherapy for diffuse large B-cell lymphoma stage IV: Followed by Dr. Mayes (oncology). Last chemo on 02Dec. Tm 100.9 earlier this morning. No overt suggestion of pulmonary, abdominal, urinary, or skin infectious sources. Perhaps he has ongoing sinusitis as his source. - At home is on R-CHOP chemo, prednisone, and Neulasta. - In ED, T-max 38.5. Briefly tachycardic. Lowest BP 98/59. Normal room SpO2. WBC 0.6, N 11.7% (ANC = 70), Procal 0.13, lactate 1.5. Negative for influenza. Ca 8.2. TnI negative and EKG sinus tachy 103 with normal intervals. LFTs okay. pCXR without acute process (and noted improved lymphadenopathy). BCx sent. UCx ordered. - In ED, given IVF as well as started antibiotics with cefepime, daptomycin, and vancomycin. - Continue cefepime and vancomycin for now. Ordered nasal MRSA. Continue neutropenia precautions. Consult oncology. Anemia: Admit Hb 10.8, perhaps related to chemotherapy. No noted acute bleeding. Platelets 336. Monitor for now. Hyponatremia: Admit Na 132. Received IVF. Recheck in a.m. Ongoing medical issues: - Hyperlipidemia: Continue home baby aspirin. Hold pravastatin initially since he received a dose of daptomycin. - CKD: Report of same, though admit Cr 0.8. Monitor for now. - Nephrolithiasis: Underwent cystoscopy and urethral dilatation by urology the beginning of August. Patient says symptoms have presently resolved. - Chronic sinusitis: Uses nasal saline as needed. Code status: Full code. Diet: Regular. DVT prophy: Lovenox. PT/OT: Deferred. Disbo: Admit to [facility]. (2) Anemia: (3) Hyponatremia: (4) Hyperlipidemia: (5) Chronic kidney disease: (6) Nephrolithiasis: (7) Chronic sinusitis: History of Present Illness Primary Care Provider: Ilia Andrews MD 74-year-old male initially presents at the request of his oncologist for lab work. He has a notable history of stage IV large B-cell lymphoma for which he is undergoing chemotherapy with Dr. Mayes. Last round of chemo was on September 24, next planned on October 15. - Patient states that beginning Tuesday (07Dec two days ago) he generally just felt tired. He took his temperature with a T-max of 100.2. He denied any particular focal pains or concerns, with his ROS being positive only for which he calls gas pains. He says that seem to occur after his rounds of chemo. - This morning, patient noted a temperature of 100.9. He then called his oncologist who referred him here for further lab work. That lab work noted neutropenia, thus he presents the ED. Presently, he continues to complain of some "gas pains" that have not particularly progressed or become more focal. When asked if he can think of any known infectious sources, initially the patient denied any. He specifically denies any cough, pleuritic pain, chest pain, abdominal pain, nausea or vomiting or acute diarrhea (though he does have some loose stools after chemo), rashes, dysuria, difficulty with urination, or flank pain. - On further review of systems, patient says he does have a history of chronic sinusitis. He notes he was on a 10-day course of amoxicillin that ended 3 days prior. He continues to get the feeling of nasal congestion, primarily on the right side, with some anterior and posterior nasal drainage. Denies any sinus or jaw pain. - Past medical history includes hyperlipidemia, stomach ulcers, chronic kidney disease, lymphoma, nephrolithiasis, chronic sinusitis, diverticulosis, prostatomegaly, hypercalcemia - Past surgical history includes tonsillectomy, colonoscopy, cleft palate repair, lymph node biopsy, right subclavian Mediport placement - Social history includes having smoked perhaps 40 years ago. Uses chewing tobacco. Very rare alcohol use. Lives at home with and kids. Allergies Allergy/AdvReac Type Severity Reaction Status Date / Time No Known Allergies Allergy Verified 10/01/19 14:17 Home Medications Home Medications Medication Instructions Recorded Confirmed Type sodium chloride 0.65 % nasal spray 2 sprays INTNAS QID PRN 05/10/19 10/01/19 History aerosol pravastatin 10 mg tablet 10 mg PO HS #90 tab 07/16/19 10/01/19 History aspirin [Aspir-81] 81 mg PO HS 07/18/19 10/01/19 History R-Chop Chemo 1 dose IV UD 10/01/19 10/01/19 History pegfilgrastim [Neulasta] 6 mg SUBCUT UD 10/01/19 10/01/19 History prednisone 100 mg PO UD 10/01/19 10/01/19 History Past Med/Surg History Medical History Chronic kidney disease (CKD) stage G3a/A1, moderately decreased glomerular filtration rate (GFR) between 45-59 mL/min/1.73 square meter and albuminuria creatinine ratio less than 30 mg/g History of stomach ulcers STOMACH ULCER 1961 Hyperlipidemia PND (post-nasal drip) Port-A-Cath in place (08/29/19) Insertion of Mediport with Fluoroscopy Dr. Andres 08/29/19 Surgical History History of cleft palate INFANCY History of colonoscopy History of removal of cyst LOCAL History of tonsillectomy S/P lymph node biopsy (08/01/19) Right Axillary Lymph Node Biopsy Dr. Andres 08/01/19 Family History Mother No problems noted. Brother Diabetes Supraventricular tachycardia Hypertension Father Diabetes Social History Preferred Language: Brazilian Communication Ability: Effective Home Care Manager Required: No Beliefs That Will Affect Care: None marital status: Current Living Situation: Spouse Current Living Situation Comment: AND 2 TEENAGERS current occupational status: retired Other Information That Helps Us Care for You: No Feels Safe at Home: Yes Safety Concerns: Feels Safe At This Time Smoking Status: Former smoker Tobacco Type: cigarettes ; Do You Dip or Chew Tobacco: No ; Smoking End Date: 1978 ; Second Hand Exposure: No ; Tobacco Cessation Education Requested by Patient: No Hx Alcohol Use: No Hx Substance Use: No Review of Systems Review of Systems: Constitutional: Positive fever and generalized fatigue. Eyes: Denies any visual loss or diplopia ENT: Positive nasal congestion. Denies sore throat, ear pain, neck pain, neck stiffness. Respiratory: Denies any dyspnea, cough, hemoptysis Cardiovascular: Denies any chest pain or feeling of edema Gastrointestinal: Positive abdominal "gas pains). Denies nausea or vomiting. Does have some loose stools with chemotherapy. Musculoskeletal: Denies any acute extremity pains, myalgias, or focal weakness Skin: Denies any known acute rashes or lesions Neuro: Denies any headache, acute focal weakness or numbness, or difficulties with speech or swallow. Physical Exam Physical Exam: GENERAL: Awake, alert, well-appearing overall, in no acute distress. HENT: Normocephalic, atraumatic. Oropharynx is mildly dry. Left nare appears patent. Right nare is a bit congested with some mucus present but no present discharge. Mild ttp over the right maxillary and left frontal sinus. EYES: Normal conjunctiva. Sclera non-icteric. NECK: Inspection normal. Supple and full ROM. No nuchal rigidity. CARDIAC: +S1S2 borderline regular tachycardia, no murmurs. Right upper chest mediport accessed. RESPIRATORY: Clear to auscultation. No wheezes or rales. Normal respiratory effort. No present cough. GI: +BS, soft, non-distended. No tenderness to palpation. No rebound or guarding. EXTREMITIES: No calf tenderness. Moving all extremities naturally and easily. +2+ bilateral pitting burkett edema. NEURO: No gross neuro deficits. Results & Data Vital Signs (Past 12 Hours) Vital Signs Temp Pulse Pulse Resp BP BP Pulse Ox 10/01/19 16:00 97 H 20 110/70 97 10/01/19 14:15 98 H 16 114/64 10/01/19 13:17 102 H 20 105/63 10/01/19 11:38 38.5 C H 128 H 20 98/59 L 96 Laboratory Results 10/01/19 10/01/19 10/01/19 Range/Units 14:10 13:15 13:15 WBC (4.8-10.8) K/uL RBC (4.7-6.1) M/uL Hgb (14.0-18.0) g/dL Hct (42-52) % MCV (80-100) fL MCH (25-34) pg MCHC (32-36) g/dL RDW Std Deviation (36.4-46.3) fL RDW Coeff of Evonne (11.5-14.5) % Plt Count (130-400) K/uL MPV (7.4-10.4) fL Immature Gran % (Auto) % Neut % (Auto) % Lymph % (Auto) % Hand % (Auto) % Eos % (Auto) % Baso % (Auto) % Immature Gran # (Auto) (0.00-0.02) K/uL Neut # (Auto) (1.4-6.5) K/uL Lymph # (Auto) (1.2-3.4) K/uL Hand # (Auto) (0.11-0.59) K/uL Eos # (Auto) (0-0.5) K/uL Baso # (Auto) (0-0.2) K/uL PT (9.0-12.0) Seconds INR (0.9-1.1) APTT (21.0-31.0) Seconds PTT Ratio Sodium (136-145) mmol/L Potassium (3.5-5.1) mmol/L Chloride (98-107) mmol/L Carbon Dioxide (21-32) mmol/L Anion Gap (3-11) BUN (7-18) mg/dl Creatinine (0.6-1.4) mg/dl Est Cr Clr Drug Dosing ml/min Est GFR ( Amer) Est GFR (Non-Af Amer) BUN/Creatinine Ratio (10-20) Glucose (70-99) mg/dl Lactate (0.4-2.0) mmol/L Calcium (8.5-10.1) mg/dl Total Bilirubin (0.2-1) mg/dl AST (15-37) U/L ALT (12-78) U/L Alkaline Phosphatase (45-117) U/L Total Creatine Kinase (39-308) U/L CK-MB (CK-2) (0.5-3.6) ng/ml CK/CKMB % Calc Troponin I < 0.015 (0-0.045) ng/ml Total Protein (6.4-8.2) gm/dl Albumin (3.4-5.0) gm/dl Globulin (2.5-4.0) gm/dl Albumin/Globulin Ratio (0.9-2) Procalcitonin 0.13 (0-0.5) ng/ml Influenza Type A (PCR) Neg for Influ A (Neg) Influenza Type B (PCR) Neg for Influ B (Neg) 10/01/19 10/01/19 10/01/19 Range/Units 13:15 13:15 13:15 WBC (4.8-10.8) K/uL RBC (4.7-6.1) M/uL Hgb (14.0-18.0) g/dL Hct (42-52) % MCV (80-100) fL MCH (25-34) pg MCHC (32-36) g/dL RDW Std Deviation (36.4-46.3) fL RDW Coeff of Evonne (11.5-14.5) % Plt Count (130-400) K/uL MPV (7.4-10.4) fL Immature Gran % (Auto) % Neut % (Auto) % Lymph % (Auto) % Hand % (Auto) % Eos % (Auto) % Baso % (Auto) % Immature Gran # (Auto) (0.00-0.02) K/uL Neut # (Auto) (1.4-6.5) K/uL Lymph # (Auto) (1.2-3.4) K/uL Hand # (Auto) (0.11-0.59) K/uL Eos # (Auto) (0-0.5) K/uL Baso # (Auto) (0-0.2) K/uL PT 11.9 (9.0-12.0) Seconds INR 1.2 H (0.9-1.1) APTT 33.3 H (21.0-31.0) Seconds PTT Ratio 1.2 Sodium 132 L (136-145) mmol/L Potassium 3.6 (3.5-5.1) mmol/L Chloride 101 (98-107) mmol/L Carbon Dioxide 25 (21-32) mmol/L Anion Gap 5.0 (3-11) BUN 19 H (7-18) mg/dl Creatinine 0.80 (0.6-1.4) mg/dl Est Cr Clr Drug Dosing 73.4 ml/min Est GFR ( Amer) 100.6 Est GFR (Non-Af Amer) 86.8 BUN/Creatinine Ratio 24.2 H (10-20) Glucose 126 H (70-99) mg/dl Lactate 1.5 (0.4-2.0) mmol/L Calcium 8.2 L (8.5-10.1) mg/dl Total Bilirubin 0.8 (0.2-1) mg/dl AST 15 (15-37) U/L ALT 22 (12-78) U/L Alkaline Phosphatase 92 (45-117) U/L Total Creatine Kinase 33 L (39-308) U/L CK-MB (CK-2) < 1.0 (0.5-3.6) ng/ml CK/CKMB % Calc TNP Troponin I (0-0.045) ng/ml Total Protein 5.3 L (6.4-8.2) gm/dl Albumin 2.4 L (3.4-5.0) gm/dl Globulin 2.9 (2.5-4.0) gm/dl Albumin/Globulin Ratio 0.8 L (0.9-2) Procalcitonin (0-0.5) ng/ml Influenza Type A (PCR) (Neg) Influenza Type B (PCR) (Neg) 10/01/19 Range/Units 13:15 WBC 0.60 L* (4.8-10.8) K/uL RBC 3.89 L (4.7-6.1) M/uL Hgb 10.8 L (14.0-18.0) g/dL Hct 32.9 L (42-52) % MCV 84.6 (80-100) fL MCH 27.8 (25-34) pg MCHC 32.8 (32-36) g/dL RDW Std Deviation 44.9 (36.4-46.3) fL RDW Coeff of Evonne 14.6 H (11.5-14.5) % Plt Count 336 (130-400) K/uL MPV 9.7 (7.4-10.4) fL Immature Gran % (Auto) 0.0 % Neut % (Auto) 11.7 % Lymph % (Auto) 23.3 % Hand % (Auto) 10.0 % Eos % (Auto) 55.0 % Baso % (Auto) 0.0 % Immature Gran # (Auto) 0.00 (0.00-0.02) K/uL Neut # (Auto) 0.07 L* (1.4-6.5) K/uL Lymph # (Auto) 0.14 L (1.2-3.4) K/uL Hand # (Auto) 0.06 L (0.11-0.59) K/uL Eos # (Auto) 0.33 (0-0.5) K/uL Baso # (Auto) 0.00 (0-0.2) K/uL PT (9.0-12.0) Seconds INR (0.9-1.1) APTT (21.0-31.0) Seconds PTT Ratio Sodium (136-145) mmol/L Potassium (3.5-5.1) mmol/L Chloride (98-107) mmol/L Carbon Dioxide (21-32) mmol/L Anion Gap (3-11) BUN (7-18) mg/dl Creatinine (0.6-1.4) mg/dl Est Cr Clr Drug Dosing ml/min Est GFR ( Amer) Est GFR (Non-Af Amer) BUN/Creatinine Ratio (10-20) Glucose (70-99) mg/dl Lactate (0.4-2.0) mmol/L Calcium (8.5-10.1) mg/dl Total Bilirubin (0.2-1) mg/dl AST (15-37) U/L ALT (12-78) U/L Alkaline Phosphatase (45-117) U/L Total Creatine Kinase (39-308) U/L CK-MB (CK-2) (0.5-3.6) ng/ml CK/CKMB % Calc Troponin I (0-0.045) ng/ml Total Protein (6.4-8.2) gm/dl Albumin (3.4-5.0) gm/dl Globulin (2.5-4.0) gm/dl Albumin/Globulin Ratio (0.9-2) Procalcitonin (0-0.5) ng/ml Influenza Type A (PCR) (Neg) Influenza Type B (PCR) (Neg) Medications Administered Vancomycin HCl (Vancomycin Hcl) 1,000 mg in 270 mls @ 125 mls/hr IV NOW STA Stop: 10/01/19 17:27 Last Admin: 10/01/19 16:30 Dose: 125 mls/hr Documented by: [id number] Discontinued Medications Cefepime HCl (Maxipime) 2,000 mg in 20 mls @ 5 mls/min IV NOW STA Stop: 10/01/19 13:05 Last Admin: 10/01/19 14:24 Dose: 5 mls/min Documented by: [id number] Daptomycin 400 mg/ Syringe 8 mls @ 4 mls/min IV NOW ONE; Protocol Stop: 10/01/19 13:03 Last Admin: 10/01/19 16:15 Dose: 4 mls/min Documented by: [id number] Sodium Chloride (Nss 1000ml) 2,000 mls @ 999 mls/hr IV .Q2H1M ONE Stop: 10/01/19 15:02 Last Infusion: 10/01/19 15:00 Dose: 0 mls/hr Documented by: [id number] Admin: 10/01/19 13:15 Dose: 999 mls/hr Documented by: [id number] Sodium Chloride (Nss 1000ml) 250 mls @ 999 mls/hr IV .Q16M ONE Stop: 10/01/19 13:35 Last Infusion: 10/01/19 16:33 Dose: 0 mls/hr Documented by: [id number] Admin: 10/01/19 16:15 Dose: 999 mls/hr Documented by: [id number] Sodium Chloride (Nss) 250 mls @ 999 mls/hr IV .Q16M ONE Stop: 10/01/19 13:54 Last Infusion: 10/01/19 16:33 Dose: 0 mls/hr Documented by: [id number] Admin: 10/01/19 16:14 Dose: 999 mls/hr Documented by: [id number] Code Status & VTE Plan Code Status Full code VTE Prophylaxis Plan VTE Prophylaxis will be ordered: Yes Supervising Physician Co-Signing Physician Notes I personally interviewed and examined the patient. I agree with history of present illness and physical exam mentioned above, I also performed my own history taking and examination. Past medical history and review of system has been obtained by myself I reviewed all pertinent labs and studies Reviewed current medications I discussed and formulated of the assessment and plan mentioned above. Please refer to the Summary mentioned below. 74 years old man with history of diffuse B-cell lymphoma currently on chemotherapy last session was 09/24/2019, patient complained from generalized weakness and fluctuating temperature, said that his T-max was this morning 100.9 he also had chronic posterior nasal discharge and cough, had some blood work done at his oncologist office and was found to have severe neutropenia with neutrophilic count of 0.07, he was sent to the ED for further evaluation. His review of system is generally negative except for some very mild diarrhea that resolved and gas pain in his abdomen that he always gets after chemotherapy, he had very mild cough that is chronic as per patient and his from his sinuses. Started on vancomycin/cefepime and will continue empiric management, follow-up blood cultures/urine cultures Consult oncologist and keep patient on neutropenic precautions General Appearance: not in acute distress Eyes: normal Sclerae, extraocular muscle intact ENT: hearing grossly normal Neck: supple Respiratory/Chest: normal air entry bilateral ,no respiratory distress, no accessory muscle use Cardiovascular: regular rate, rhythm, no murmur Abdomen: non tender, soft, no masses Extremities: no edema musculoskeletal: no significant swelling or inflammation in any joint Neurologic/Psychiatric: Awake alert oriented times place and person moves all extremities sensation intact cranial nerves II-12 appear to be intact Skin: normal color, warm/dry, no rash Anatoliy Correa MD, [facility] hospitalist group Resident Activity Tracking Resident Involvement: Resident Care Provided Care Provided: Adult Hospital Medicine
[2019-10-01 18:06] LABS: Appearance Urine Clear (Clear); Bilirubin Urine Negative (Negative); Blood Urine Negative (Negative); Color Urine Yellow; Glucose Urine UA Negative (Negative); Ketones Urine Negative (Negative); Leukocyte Esterase Urine Negative (Negative); Nitrite Urine Negative (Negative); Protein Urine Negative (Negative); Specific Gravity Urine 1.015 (1.000-1.030); Urobilinogen Urine Negative (Negative)
[2019-10-01] MEDS ORDERED: SODIUM CHLORIDE 0.65% NA SOLN 45 ML (OCEAN) PRN (18:22)
[2019-10-01] MEDS ORDERED: ONDANSETRON INJ 2 MG/ML 2 ML VIAL IV PRN (18:22)
--- NOTE | 2019-10-01 20:05 | Pharmacy Report ---
Pharmacy Abx Initial Consult - Date of Service October 01, 2019 - Pharmacy Dosing Scope Date of Consult: 10/01/19 Consultation requested by: Dr. Hatch Pharmacy is consulted to initiate VANCOMYCIN IV dosing therapy, order appropriate labs and adjust drug dose/frequency. - Subjective The patient is a 74 year old M admitted on 10/01/19 17:03. - Objective Height: 5 ft 7 in Weight: 72.9 kg Vital Signs (Past 12hrs): Vital Signs Temp Pulse Pulse Resp BP BP BP 10/01/19 18:32 37.9 C H 98 H 16 127/80 10/01/19 18:04 112 H 20 101/86 10/01/19 18:00 112 H 20 101/82 10/01/19 16:00 97 H 20 110/70 10/01/19 14:15 98 H 16 114/64 10/01/19 13:17 102 H 20 105/63 10/01/19 11:38 38.5 C H 128 H 20 98/59 L Pulse Ox 10/01/19 18:32 99 10/01/19 18:04 96 10/01/19 18:00 97 10/01/19 16:00 97 10/01/19 14:15 10/01/19 13:17 10/01/19 11:38 96 Lab Results (24hrs): Laboratory Tests (24 Hours) 10/01/19 10/01/19 10/01/19 13:15 13:15 13:15 WBC 0.60 L* Neut # (Auto) 0.07 L* Creatinine 0.80 Est Cr Clr Drug Dosing 73.4 Total Creatine Kinase 33 L Procalcitonin 0.13 Micro Results: 10/01/19 13:34 Aerobic Blood Culture - Pending Blood Anaerobic Blood Culture - Pending 10/01/19 13:15 Aerobic Blood Culture - Pending Blood Anaerobic Blood Culture - Pending - Risk Factors for Resistance * Immunocompromised (chemotherapy) - Assessment & Plan Assessment 74 year old M admitted with neutropenic fever. Plan VANCOMYCIN for treatment of NEUTROPENIC FEVER/ Vancomycin IV * Estimated PK Parameters: Vd 0.7 L/kg, Ovidio 0.065 hr-1, t1/2 ~10hr * Loading dose: 1000mg (~13.6 mg/kg) * Maintenance dose: 1000mg IV (13.6 mg/kg) every 10 hours * Maintenance dose ordered to start early due to low loading dose. * Goal trough level for NEUTROPENIC FEVER : 15 to 20 mcg/mL * Trough level ordered for 10/03/19 @ 0430. Pharmacy will continue to follow and will adjust dose/frequency as necessary. Thank you.
[2019-10-01] MEDS: LACTATED RINGER'S 1,000 ML IV SCH (20:14)
[2019-10-01] MEDS: ASPIRIN 81 MG ECTAB PO SCH (20:15)
[2019-10-01] MEDS: ACETAMINOPHEN 325 MG TAB PO PRN (20:16)
[2019-10-01] MEDS: ENOXAPARIN INJ 40 MG/0.4 ML SYR SQ SCH (20:18)
--- NOTE | 2019-10-01 20:47 | Billing Data ---
Coding Level of Care Code 75026 Initial Inpt Care Lvl 3
[2019-10-01] MEDS: CEFEPIME 2,000 MG in SYRINGE 7.5 ML IV SCH (21:54)
[2019-10-01] MEDS: VANCOMYCIN HCL 1,000 MG in SODIUM CHLORIDE 0.9% 250 ML IV SCH (21:57)
[2019-10-01] MEDS ORDERED: VANCOMYCIN HCL 1,000 MG in SODIUM CHLORIDE 0.9% 250 ML IV SCH (22:00)
[2019-10-02 06:44] LABS: Hematocrit (blood only) 32.4 % (42-52); Hemoglobin 10.9 g/dL (14.0-18.0); Mean Corpuscular Hemoglobin 28.1 pg (25-34); Mean Corpuscular Hgb Conc 33.6 g/dL (32-36); Mean Corpuscular Volume 83.5 fL (80-100); Mean Platelet Volume 10.2 fL (7.4-10.4); Platelet Count 276 K/uL (130-400); RDW Coefficient of Variation 14.6 % (11.5-14.5); RDW Standard Deviation 44.1 fL (36.4-46.3); Red Blood Count 3.88 M/uL (4.7-6.1); White Blood Count 0.63 K/uL (4.8-10.8)
[2019-10-02] MEDS: CEFEPIME 2,000 MG in SYRINGE 7.5 ML IV SCH ×3 (06:47→22:07)
[2019-10-02] MEDS: HEPARIN 100 UNIT/ML 5ML FLUSH FLUSH PRN (06:47)
[2019-10-02 07:10] LABS: BUN Creatinine Ratio 20.2 (10-20); Calcium 8.1 mg/dl (8.5-10.1); Creatinine Clr Calc Pharmacy 85.2 ml/min; Est GFR (African American) 106.9; Est GFR (Non-African American) 92.2; Potassium 3.3 mmol/L (3.5-5.1)
[2019-10-02 07:13] LABS: Dohle Bodies 1+; Eosinophils % (auto) 47.6 %; Lymphocytes # (auto) 0.15 K/uL (1.2-3.4); Lymphocytes % (auto) 23.8 %; Monocytes # (auto) 0.14 K/uL (0.11-0.59); Monocytes % (auto) 22.2 %; Neutrophils # (auto) 0.04 K/uL (1.4-6.5); Neutrophils % (auto) 6.4 %
[2019-10-02] MEDS: VANCOMYCIN HCL 1,000 MG in SODIUM CHLORIDE 0.9% 250 ML IV SCH (08:40)
[2019-10-02] MEDS ORDERED: POTASSIUM CHLORIDE 20 MEQ TABCR PO STA (09:11)
[2019-10-02] MEDS: LACTATED RINGER'S 1,000 ML IV SCH (14:06)
[2019-10-02] MEDS ORDERED: IOVERSOL 100ml IV PRN (14:39)
[2019-10-02] MEDS: metroNIDAZOLE 500 MG/100 ML BAG IV SCH ×2 (14:40→22:08)
--- NOTE | 2019-10-02 14:51 | CT Scan Report ---
CT sinus w con HISTORY: sinus infection with neutropenic fever TECHNIQUE: Multiaxial CT images of the sinuses were performed following the use of intravenous contra st and reformatted in the coronal plane. COMPARISON STUDY: Sinus CT 02/12/2019. FINDINGS: Moderate to severe right nasal septal deviation with a right-sided nasal spur. The bilatera l ostiomeatal units are patent. No fluid levels within the paranasal sinuses. A right-sided cleft pal ate is again noted. This is opacified with soft tissue. The lamina papyracea and orbital floors are i ntact. The frontal sinuses, sphenoid sinuses, maxillary sinuses, and mastoid air cells are clear. A s zunilda partially opacified right posterior ethmoid air cell. The remaining ethmoid air cells are clear . Punctate metallic density adjacent to the right uncinate process. This remains unchanged. Soft tiss ues are unremarkable. IMPRESSION: 1. The paranasal sinuses and mastoid air cells are clear. 2. Right-sided cleft palate is again noted. Electronically signed by: Lalito Brito M.D. 10/02/2019 2:49 PM
[2019-10-02] MEDS: ACETAMINOPHEN 325 MG TAB PO PRN (16:34)
--- NOTE | 2019-10-02 16:50 | Hospitalist Progress Note ---
Date of Service October 02, 2019 Assessment & Plan (1) Neutropenic fever: Neutropenic fever, on chemotherapy for diffuse large B-cell lymphoma stage IV: Followed by Dr. Mayes (oncology). Last chemo on . No overt suggestion of pulmonary, abdominal, urinary, or skin infectious sources. - At home is on R-CHOP chemo, prednisone, and Neulasta. - Afebrile today - BC, UC pending - Discontinued vancomycin as MRSA swab was negative. Continue cefepime and add flagyl for anaerobe coverage. - continue neutropenic precautions - Consulted oncology (2) Anemia: No s/s of acute bleeding repeat CBC am (3) Hyponatremia: Na 133 repeat bmp am (4) Hyperlipidemia: Continue home ASA, held pravastatin due to dose of daptomycin in ED (5) Chronic kidney disease: stage II Creatinine clearance 85 Avoid nephrotoxins where possible (6) Nephrolithiasis: Underwent cystoscopy and urethral dilatation by urology the beginning of August. Patient says symptoms have presently resolved. (7) Chronic sinusitis: Recently finished course of Augmentin Small partial opacity of ethmoid sinus but otherwise sinuses are clear on CT with contrast (8) DVT prophylaxis: Enoxaparin Subjective Mr. Hair reports some frontal sinus head pain and feeling that he has drainage in his throat which is white or yellow when he coughs it up. He recently completed a round of Augmentin. He otherwise does not have complaints ROS Constitutional: no chills, aches, sweats or fever Respiratory: no sob,cough, sputum, or wheezing Cardiac: no chest pain, palpitations, edema, orthopnea or lightheadedness GI: no abdominal pain, nausea, vomiting, diarrhea or constipation : no dysuria or hesitancy Extremities: no joint pain or weakness Skin: no rash All other systems reviewed and negative Physical Exam Physical Exam: General: no distress EENT: normal inspection, PERLL, nares with small amount of dried blood Respiratory: chest non tender, clear to auscultation, normal breath sounds, no respiratory distress, no accessory muscle use Cardiac: regular rate and rhythm, no rub or gallop, no murmur, no edema, no jvd GI/: active bowel sounds, no abd pain or tenderness, soft, non distended Extremities: normal range of motion, normal strength, non tender Neuro/Psych: alert and oriented x 3, normal mood and affect Skin: normal color, dry Results & Data Vital Signs (Past 12 Hours) Vital Signs Temp Pulse Resp BP BP Pulse Ox 10/02/19 15:00 37.7 C H 92 H 20 105/61 98 10/02/19 07:10 37.3 C 92 H 18 110/69 98 PG Care Time/CCT Total # of Minutes Spent Total Time Spent with Patient: Total time spent is greater than 50% in coordination of care (as documented) at patient's floor/unit and/or counseling patient:
--- NOTE | 2019-10-02 17:21 | Oncology Consultation ---
Date of Consultation October 02, 2019 Assessment & Plan (1) Neutropenic fever: He has febrile neutropenia and is on appropriate broad-spectrum gram negative coverage. He has no obvious localizing signs or symptoms of infection. He has some sinus congestion, but his CT sinuses was clear. Most often, no source of infection is indentified in these patients. I would continue the antibiotics until his counts are recovering and he is afebrie for around 48 hours. However, if an infectious source is identified, we can narrow coverage to treat that organism and continue treatment for an appropriate course. His counts are at their raji and I would expect them to recover shortly, as he had peg ylated GCSF. Present on Admission?: Yes History of Present Illness Reason for Consultation: Diffuse large B cell lymphoma Febrile neutropenia Attending Physician: Lamberto Olivera MD History of Present Illness Mr. Hair is a 74 year old man with a history of diffuse large B cell lymphoma, now on chemotherapy. He received his second cycle on 09/24 and got Neulasta the following day. Over the weekend, he had some temperatures that were up and down, mostly in the 99 to low 100 range. He came to our office yesterday because he was feeling unwell and had a temp of 102. Because he was neutropenic, we arranged for him to come to the hospital. Since starting antibiotics, he has been afebrile. He had no dysuria or hematuria, cough or shortness of breath, rash, nausea, or vomiting. He reports some gas pains that have happened with both cycles so far, along with some mildly loose stools. He had no gross watery diarrhea. He does report some sinus drainage and congestion. Allergies Allergy/AdvReac Type Severity Reaction Status Date / Time No Known Allergies Allergy Verified 10/01/19 14:17 Home Medications Home Medications Medication Instructions Recorded Confirmed Type sodium chloride 0.65 % nasal spray 2 sprays INTNAS QID PRN 05/10/19 10/01/19 History aerosol pravastatin 10 mg tablet 10 mg PO HS #90 tab 07/16/19 10/01/19 History aspirin [Aspir-81] 81 mg PO HS 07/18/19 10/01/19 History R-Chop Chemo 1 dose IV UD 10/01/19 10/01/19 History pegfilgrastim [Neulasta] 6 mg SUBCUT UD 10/01/19 10/01/19 History prednisone 100 mg PO UD 10/01/19 10/01/19 History Patient History Medical History Chronic kidney disease (CKD) stage G3a/A1, moderately decreased glomerular filtration rate (GFR) between 45-59 mL/min/1.73 square meter and albuminuria creatinine ratio less than 30 mg/g History of stomach ulcers STOMACH ULCER 1961 Hyperlipidemia PND (post-nasal drip) Port-A-Cath in place (08/29/19) Insertion of Mediport with Fluoroscopy Dr. Andres 08/29/19 Surgical History History of cleft palate INFANCY History of colonoscopy History of removal of cyst LOCAL History of tonsillectomy S/P lymph node biopsy (08/01/19) Right Axillary Lymph Node Biopsy Dr. Andres 08/01/19 Family History Mother No problems noted. 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 Feels Safe at Home: Yes Smoking Status: Former smoker Tobacco Type: cigarettes ; Second Hand Exposure: No ; Hx Alcohol Use: No Hx Substance Use: No Review of Systems Review of Systems: All systems reviewed & are unremarkable except as noted in HPI & below Physical Exam Constitutional: + ill appearing (chronically) and comfortable; no acute distress ENMT: external ear and nose normal, oropharynx normal Respiratory: normal respiratory effort, lungs clear to auscultation Cardiovascular: RRR, no murmur, no edema Gastrointestinal (Abdomen): Inspection/Auscultation: normal bowel sounds; abdomen not distended Percussion/Palpation: abdomen soft; abdomen nontender Skin: no rashes, warm and dry Psychiatric: A+Ox3, euthymic affect Lymphatic: no cervical or axillary lymphadenopathy Results & Data Vital Signs (Past 12 Hours) Vital Signs Temp Pulse Resp BP BP Pulse Ox 10/02/19 15:00 37.7 C H 92 H 20 105/61 98 10/02/19 07:10 37.3 C 92 H 18 110/69 98 Laboratory Results Laboratory Tests 10/01/19 10/02/19 13:15 05:32 WBC 0.60 L* 0.63 L* Hgb 10.8 L 10.9 L Plt Count 276 Neut # (Auto) 0.07 L* 0.04 L* A UA on admissionn was non-infectious appearing. Diagnostic Findings CT Sinuses, 10/02/19: IMPRESSION: 1. The paranasal sinuses and mastoid air cells are clear. 2. Right-sided cleft palate is again noted. CXR, 10/01/19: IMPRESSION: 1. No acute process within the chest. 2. Interval improvement in the mediastinal and hilar enlargement consistent with resolving lymphadenopathy.
[2019-10-02] MEDS: ENOXAPARIN INJ 40 MG/0.4 ML SYR SQ SCH (20:38)
[2019-10-02] MEDS: ASPIRIN 81 MG ECTAB PO SCH (20:38)
[2019-10-03] MEDS: ACETAMINOPHEN 325 MG TAB PO PRN ×2 (02:06→15:33)
[2019-10-03] MEDS ORDERED: VANCOMYCIN TROUGH ONE ×4 (03:30→09:30)
[2019-10-03] MEDS: CEFEPIME 2,000 MG in SYRINGE 7.5 ML IV SCH ×2 (05:33→13:33)
[2019-10-03] MEDS: metroNIDAZOLE 500 MG/100 ML BAG IV SCH ×3 (05:39→22:04)
[2019-10-03 06:06] LABS: Hematocrit (blood only) 29.7 % (42-52); Hemoglobin 9.9 g/dL (14.0-18.0); Mean Corpuscular Hemoglobin 27.7 pg (25-34); Mean Corpuscular Hgb Conc 33.3 g/dL (32-36); Platelet Count 259 K/uL (130-400); RDW Coefficient of Variation 14.6 % (11.5-14.5); RDW Standard Deviation 43.7 fL (36.4-46.3); Red Blood Count 3.58 M/uL (4.7-6.1)
[2019-10-03 06:34] LABS: Albumin Level 1.9 gm/dl (3.4-5.0); BUN Creatinine Ratio 13.3 (10-20); Calcium 7.8 mg/dl (8.5-10.1); Creatinine Clr Calc Pharmacy 83.9 ml/min; Est GFR (African American) 106.2; Est GFR (Non-African American) 91.7; Potassium 3.2 mmol/L (3.5-5.1)
[2019-10-03 06:37] LABS: Albumin Globulin Ratio 0.7 (0.9-2); Bilirubin,Total 0.5 mg/dl (0.2-1); Globulin 2.8 gm/dl (2.5-4.0); Total Protein 4.7 gm/dl (6.4-8.2)
[2019-10-03 06:58] LABS: Basophils # (auto) 0.01 K/uL (0-0.2); Basophils % (auto) 0.6 %; Dohle Bodies 2+; Eosinophils # (auto) 0.24 K/uL (0-0.5); Immature Granulocytes # (auto) 0.03 K/uL (0.00-0.02); Immature Granulocytes % (auto) 1.9 %; Lymphocytes # (auto) 0.21 K/uL (1.2-3.4); Lymphocytes % (auto) 13.1 %; Monocytes % (auto) 18.8 %; Neutrophils # (auto) 0.81 K/uL (1.4-6.5); Neutrophils % (auto) 50.6 %
[2019-10-03] MEDS ORDERED: POTASSIUM CHLORIDE 20 MEQ TABCR PO STA (08:11)
[2019-10-03] MEDS ORDERED: LOPERAMIDE HCL 2 MG CAP PO PRN (12:38)
[2019-10-03] MEDS: LACTATED RINGER'S 1,000 ML IV SCH (13:26)
--- NOTE | 2019-10-03 14:21 | Hospitalist Progress Note ---
Date of Service October 03, 2019 Assessment & Plan (1) Neutropenic fever: Neutropenic fever, on chemotherapy for diffuse large B-cell lymphoma stage IV: Followed by Dr. Mayes (oncology). Last chemo on . No overt suggestion of pulmonary, abdominal, urinary, or skin infectious sources. - At home is on R-CHOP chemo, prednisone, and Neulasta. - BC, UC ngtd - Discontinued vancomycin as MRSA swab was negative. Continue cefepime and add flagyl - continue neutropenic precautions - neutrophil count improving - Consulted oncology (2) Anemia: No s/s of acute bleeding, likely related to chemotherapy (3) Hyponatremia: resolved (4) Hyperlipidemia: Continue home ASA, held pravastatin due to dose of daptomycin in ED (5) Chronic kidney disease: stage II Avoid nephrotoxins where possible (6) Nephrolithiasis: Underwent cystoscopy and urethral dilatation by urology the beginning of August. Patient says symptoms have presently resolved. (7) Chronic sinusitis: Recently finished course of Augmentin Small partial opacity of ethmoid sinus but otherwise sinuses are clear on CT with contrast (8) DVT prophylaxis: Enoxaparin Subjective Mr. Hair continues to have diarrhea frequently that is watery but not bloody. He is not nauseas or vomiting. He continues to have sinus drainage. He did not have any fevers overnight or today ROS Constitutional: no chills, aches, sweats or fever Respiratory: no sob,cough, sputum, or wheezing Cardiac: no chest pain, palpitations, edema, orthopnea or lightheadedness GI: no abdominal pain : no dysuria or hesitancy Extremities: no joint pain or weakness Skin: no rash All other systems reviewed and negative Physical Exam Physical Exam: General: no distress Eyes: normal inspection, PERLL Respiratory: chest non tender, clear to auscultation, normal breath sounds, no respiratory distress, no accessory muscle use Cardiac: regular rate and rhythm, no rub or gallop, no murmur, no edema, no jvd GI/: active bowel sounds, no abd pain or tenderness, soft, non distended Extremities: normal range of motion, normal strength, non tender Neuro/Psych: alert and oriented x 3, normal mood and affect Skin: normal color, dry Results & Data Vital Signs (Past 12 Hours) Vital Signs Temp Pulse Resp BP BP Pulse Ox 10/03/19 11:22 37.5 C 98 H 18 107/62 96 10/03/19 07:07 36.6 C 81 18 102/60 98 10/03/19 05:30 36.9 C 84 18 102/62 95 PG Care Time/CCT Total # of Minutes Spent Total Time Spent with Patient: Total time spent is greater than 50% in coordination of care (as documented) at patient's floor/unit and/or counseling patient:
[2019-10-03] MEDS ORDERED: IOVERSOL 100ml IV PRN (20:57)
[2019-10-03] MEDS: ENOXAPARIN INJ 40 MG/0.4 ML SYR SQ SCH (21:08)
[2019-10-03] MEDS: ASPIRIN 81 MG ECTAB PO SCH (21:08)
--- NOTE | 2019-10-03 21:13 | CT Scan Report ---
ABDOMEN AND PELVIS CT WITH IV AND ORAL CONTRAST CT DOSE: 449.20 mGy.cm HISTORY: Generalized abdominal pain, neutropenic fever. Lymphoma. TECHNIQUE: Multiaxial CT images of the abdomen and pelvis were performed following the use of intrave nous and oral contrast. A dose lowering technique was utilized adhering to the principles of ALARA. COMPARISON STUDY: Abdomen and pelvis CT 08/27/2019. FINDINGS: 4 mm subpleural nodule within the right lower lobe. Punctate calcified granuloma within the right lower lobe. A few bibasilar linear densities consistent with subsegmental atelectasis. No pneu moperitoneum. No pneumatosis. Bilateral L5 spondylolysis. Old right L2-L4 transverse process fracture s. A few subcentimeter hypodense lesions within the liver. These are technically too small to charact erize. The spleen, adrenal glands, pancreas, and kidneys are unremarkable. Mild bilateral perinephric edema. A small amount of low-density soft tissue within the retroperitoneum, periportal, and splenic hilar locations are noted. This suggests treated lymphoma. There are a few subcentimeter retroperito chelsie lymph nodes remaining the largest measuring 7 mm in short axis diameter. Small fat-containing bi lateral inguinal hernias. Moderate bladder wall thickening. The prostate gland is enlarged. Colonic d iverticulosis. There is an inflamed diverticulum at the junction of the descending colon/sigmoid colo n with surrounding inflammatory change. Therefore, this is consistent with acute diverticulitis. No p erforation or abscess identified at this time. No evidence for bowel obstruction. Normal appendix. De crease in size in a single right distal thoracic periaortic lymph node. This now measures 8 mm in ashley rt axis diameter. IMPRESSION: 1. Acute diverticulitis at the junction of the descending colon/sigmoid colon. No perforation or absc ess at this time. 2. Significant improvement/resolution of the lymphadenopathy as described above. There are few scatte red small areas of low density soft tissue within the periportal, retroperitoneal, and splenic hilar locations. This suggests treated lymphoma. 3. Moderate bladder wall thickening. This may be due to chronic outlet obstruction from the enlarged prostate gland. Recommend correlation with urinalysis. 4. Additional findings as described above. Electronically signed by: Lalito Brito M.D. 10/03/2019 9:12 PM
[2019-10-04] MEDS: metroNIDAZOLE 500 MG/100 ML BAG IV SCH (05:58)
[2019-10-04 06:37] LABS: Creatinine Clr Calc Pharmacy 86.4 ml/min; Est GFR (African American) 107.5; Est GFR (Non-African American) 92.8
[2019-10-04] MEDS: LACTATED RINGER'S 1,000 ML IV SCH (07:47)
[2019-10-04 08:56] LABS: Hematocrit (blood only) 30.1 % (42-52); Hemoglobin 10.1 g/dL (14.0-18.0); Mean Corpuscular Hgb Conc 33.6 g/dL (32-36); Mean Corpuscular Volume 83.4 fL (80-100); Platelet Count 294 K/uL (130-400); RDW Coefficient of Variation 14.7 % (11.5-14.5); RDW Standard Deviation 43.9 fL (36.4-46.3); Red Blood Count 3.61 M/uL (4.7-6.1); White Blood Count 6.01 K/uL (4.8-10.8)
[2019-10-04 08:59] LABS: Albumin Level 2.1 gm/dl (3.4-5.0); BUN Creatinine Ratio 9.5 (10-20); Calcium 7.8 mg/dl (8.5-10.1); Est GFR (African American) 108.8; Est GFR (Non-African American) 93.9; Potassium 3.3 mmol/L (3.5-5.1)
[2019-10-04] MEDS ORDERED: CIPROFLOXACIN 500 MG TAB PO SCH (09:00)
[2019-10-04 09:02] LABS: Albumin Globulin Ratio 0.7 (0.9-2); Bilirubin,Total 0.3 mg/dl (0.2-1); Total Protein 5.1 gm/dl (6.4-8.2)
[2019-10-04] MEDS ORDERED: POTASSIUM CHLORIDE 20 MEQ TABCR PO STA (09:22)
[2019-10-04 09:23] LABS: Basophils # (auto) 0.07 K/uL (0-0.2); Basophils % (auto) 1.2 %; Eosinophils # (auto) 0.59 K/uL (0-0.5); Eosinophils % (auto) 9.8 %; Immature Granulocytes # (auto) 0.46 K/uL (0.00-0.02); Immature Granulocytes % (auto) 7.7 %; Lymphocytes # (auto) 0.28 K/uL (1.2-3.4); Lymphocytes % (auto) 4.7 %; Monocytes # (auto) 0.81 K/uL (0.11-0.59); Monocytes % (auto) 13.5 %; Neutrophils % (auto) 63.1 %
--- NOTE | 2019-10-04 13:29 | Discharge Summary ---
Date of Service October 04, 2019 Admission HPI Per Admitting Provider 74-year-old male initially presents at the request of his oncologist for lab work. He has a notable history of stage IV large B-cell lymphoma for which he is undergoing chemotherapy with Dr. Mayes. Last round of chemo was on September 24, next planned on October 15. - Patient states that beginning Tuesday (07Dec two days ago) he generally just felt tired. He took his temperature with a T-max of 100.2. He denied any particular focal pains or concerns, with his ROS being positive only for which he calls gas pains. He says that seem to occur after his rounds of chemo. - This morning, patient noted a temperature of 100.9. He then called his oncologist who referred him here for further lab work. That lab work noted neutropenia, thus he presents the ED. Presently, he continues to complain of some "gas pains" that have not particularly progressed or become more focal. When asked if he can think of any known infectious sources, initially the patient denied any. He specifically denies any cough, pleuritic pain, chest pain, abdominal pain, nausea or vomiting or acute diarrhea (though he does have some loose stools after chemo), rashes, dysuria, difficulty with urination, or flank pain. - On further review of systems, patient says he does have a history of chronic sinusitis. He notes he was on a 10-day course of amoxicillin that ended 3 days prior. He continues to get the feeling of nasal congestion, primarily on the right side, with some anterior and posterior nasal drainage. Denies any sinus or jaw pain. - Past medical history includes hyperlipidemia, stomach ulcers, chronic kidney disease, lymphoma, nephrolithiasis, chronic sinusitis, diverticulosis, prostatomegaly, hypercalcemia - Past surgical history includes tonsillectomy, colonoscopy, cleft palate repair, lymph node biopsy, right subclavian Mediport placement - Social history includes having smoked perhaps 40 years ago. Uses chewing tobacco. Very rare alcohol use. Lives at home with and kids. Principal Diagnosis Neutropenia, diverticulitis Discharge Exam Constitutional WD/WN, vitals as above Respiratory normal respiratory effort, lungs clear to auscultation Cardiovascular RRR, no murmur, no edema Gastrointestinal (Abdomen) normal bowel sounds, soft, nontender, no hepatosplenomegaly Musculoskeletal no cyanosis or clubbing, extremities motor strength 5/5 Skin no rashes, warm and dry Neurologic moves all extremities and awake Psychiatric A+Ox3, euthymic affect Discharge Data Allergies Allergy/AdvReac Type Severity Reaction Status Date / Time No Known Allergies Allergy Verified 10/01/19 14:17 Consultations 10/01/19 14:12 ED Decision to Admit Stat 10/01/19 18:22 Consult Hematology Routine Ordered Studies 10/02/19 13:40 CT sinus w con Routine 10/03/19 18:21 CT abd pelvis oral and IV con Urgent Hospital Course (1) Neutropenic fever: Neutropenic fever, on chemotherapy for diffuse large B-cell lymphoma stage IV: Followed by Dr. Mayes (oncology). Last chemo on . - Neutropenia resolved - diverticulitis on CT abd/pelvis- will treat for 10 days total, initially treated with cefepime and flagyl, will change to cipro/flagyl for home - At home is on R-CHOP chemo, prednisone, and Neulasta. - BC, UC ngtd - Consulted oncology (2) Anemia: No s/s of acute bleeding, likely related to chemotherapy, hgb has been stable (3) Hyponatremia: resolved (4) Hyperlipidemia: Continue home ASA, held pravastatin due to dose of daptomycin in ED, will resume for home (5) Chronic kidney disease: stage II Avoid nephrotoxins where possible (6) Nephrolithiasis: Underwent cystoscopy and urethral dilatation by urology the beginning of August. Patient says symptoms have presently resolved. (7) Chronic sinusitis: Recently finished course of Augmentin Small partial opacity of ethmoid sinus but otherwise sinuses are clear on CT with contrast (8) DVT prophylaxis: Enoxaparin Total Time Total Time Spent Total Time Spent (In Minutes): greater than 30 minutes Discharge Plan Discharge Items Patient Disposition: Home - Self-Care Reason For Visit: NEUTROPENIC FEVER Discharge Diagnosis: neutropenia, diverticulitis Activity: Resume your previous activity Non-emergency contact: Primary Care Provider Call non-emergency contact if: you have any medication questions, your symptoms worsen and you have a fever Follow-up/Referrals: Ilia Andrews MD [Primary Care Provider] - 10/08/19 2:30 pm (Please, follow up at Dr. Ilia Andrews's office with his associate, Elisa Franco PA-C, on TuesdayOctober 08 at 2:30 pm. *If you need to change this appointment, call their office at [phone].) Priyank Robles [Physician] - 10/15/19 8:00 am (Please, follow up at Dr. Priyank Robles's office with his associate, Pratima CASTRO, on TuesdayOctober 15 at 8:00 am. *If you need to change this appointment, call the office at [phone].) Diet: Regular Addtl Attending Provider Instructions: (1) Neutropenia and diverticultitis: You were treated at the hospital for diverticultitis - Your blood culture and urine culture were negative for infection, your white blood cell count is now normal - You will continue antibiotics for a total of 10 days - The CT of your sinuses did not show acute sinus infection Pending Studies at Discharge: No Stand-Alone Forms: My [facility] Mediasmart, Smoking Cessation Medications and DC Order Prescriptions: New metronidazole 500 mg Tablet 500 mg PO TID Qty: 21 RF: 0 ciprofloxacin HCl 500 mg Tablet 500 mg PO BID Qty: 14 RF: 0 Continued sodium chloride [Saline Nasal] 0.65 % aerosol,spray 2 sprays INTNAS QID PRN (Reason: Nasal Congestion) RF: 0 pravastatin 10 mg tablet 10 mg PO HS Qty: 90 RF: 0 prednisone 20 mg tablet 100 mg PO UD RF: 0 Neulasta 6 mg/0.6mL Syringe 6 mg SUBCUT UD RF: 0 R-Chop Chemo 1 dose IV UD RF: 0 aspirin [Aspir-81] 81 mg Tablet,Delayed Release (Dr/Ec) 81 mg PO HS RF: 0 Discharge Orders: Discharge Order (Routine); Ordered 10/04/19 Ordered By: Kavya Andrews Admission Data Admit Date/Time: 10/01/19 17:03 Attending Provider: Lamberto Olivrea Admit Provider: Vince Hatch Primary Care Provider: Ilia Andrews Other Providers: Priyank Robles ; Lamberto Olivera
[2019-10-04] MEDS ORDERED: metroNIDAZOLE 500 MG TAB PO SCH (14:00)
[2019-10-04] MEDS: HEPARIN 100 UNIT/ML 5ML FLUSH FLUSH PRN (14:13)
== END 2019-10-04 14:39 | disposition home or self-care (01) | DRG 809 ==
LOC: ED 10:58 → 4W 17:03 → SUATTDRO 17:03 → 4W 18:04